=== PATIENT | female | born 1990 | race Caucasian/White ===

== ENCOUNTER 2017-05-27 06:33 | Inpatient (IN) | payer OTHER ==
[2017-05-27] MEDS ORDERED: NACL 0.9% 1000 ML 2,000 ML IV ONE (06:52)
--- NOTE | 2017-05-27 07:11 | XRay Report ---
FINAL REPORT EXAM: XR CHEST 1V AP HISTORY: Fever/Sepsis TECHNIQUE: AP portable view(s) of the chest obtained. PRIORS: None. FINDINGS: No mediastinal shift. Cardiac silhouette is not enlarged. No pneumothorax, effusion, or focal pulmonary opacity identified. No acute skeletal findings. IMPRESSION: No acute pulmonary finding identified.
[2017-05-27 07:14] LABS: Basophils % (Auto) 0.2 % (0.0-1.8); Hematocrit 27.4 % (30.3-42.9); Hemoglobin 8.9 gm/dl (10.1-14.3); Lymphocytes % (Auto) 5.6 % (13.4-35.0); Mean Corpuscular HGB Conc 33 % (30-34); Mean Corpuscular Hemoglobin 32 pg (28-32); Mean Corpuscular Volume 99 fl (79-97); Monocytes # (Auto) 1.3 K/mm3 (0.0-0.8); Monocytes % (Auto) 7.4 % (0.0-7.3); Platelet Count 208 K/mm3 (140-440); Red Blood Count 2.77 M/mm3 (3.65-5.03); Red Cell Distribution Width 15.8 % (13.2-15.2)
[2017-05-27 07:25] LABS: INR 1.13 (0.87-1.13)
[2017-05-27 07:29] LABS: Alanine Aminotransferase 11 units/L (7-56); Albumin 3.4 g/dL (3.9-5); BUN/Creatinine Ratio 23; Bilirubin,Direct 0.4 mg/dL (0-0.2); Blood Urea Nitrogen 14 mg/dL (7-17); Calcium 8.2 mg/dL (8.4-10.2); Hemolysis Index 0
[2017-05-27] MEDS ORDERED: K-DUR PO ONE (07:34)
--- NOTE | 2017-05-27 07:34 | Emergency Department Report ---
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 Medics tell me that she had passed out in the cooler. When they arrived on the scene they did the usual assessment. They noted that their life pack 15 monitor registered a carbon monoxide level of 59. The patient was however awake and aware. She did seem to be having respiratory difficulty and was transported to this facility on oxygen. The patient tells me that she has been feeling weak for several days. She didn' t have any shortness of breath per se. She doesn't think that she lost consciousness. She doesn't report any chills but thinks she may have had a fever. She essentially just feels weak in general denying chest pain and abdominal pain. She also tells me that she had a miscarriage 2 weeks ago. -: Gradual, days(s) Radiation: other (no complaint of pain ) Severity scale (0 -10): 0 Improves with: none Worsens with: none Associated Symptoms: denies other symptoms, weakness - Related Data Allergies Allergy/AdvReac Type Severity Reaction Status Date / Time No Known Allergies Allergy Unverified 05/27/17 07:14 ED Review of Systems ROS: Stated complaint: PASSED OUT Other details as noted in HPI Constitutional: weakness. denies: chills, fever Eyes: denies: eye pain, eye discharge, vision change ENT: denies: ear pain, throat pain Respiratory: denies: cough, shortness of breath, wheezing Cardiovascular: denies: chest pain, palpitations Endocrine: no symptoms reported Gastrointestinal: denies: abdominal pain, nausea, diarrhea Genitourinary: as per HPI, other. denies: urgency, dysuria, discharge Musculoskeletal: denies: back pain, joint swelling, arthralgia Skin: denies: rash, lesions Neurological: denies: headache, weakness, paresthesias Psychiatric: denies: anxiety, depression Hematological/Lymphatic: denies: easy bleeding, easy bruising ED Past Medical Hx - Past Medical History Previous Medical History?: No - Surgical History Past Surgical History?: No - Social History Smoking Status: Never Smoker Substance Use Type: None ED Physical Exam - General Limitations: No Limitations General appearance: alert, in no apparent distress, other (patient looked somewhat ill) - Head Head exam: Present: atraumatic, normocephalic - Eye Eye exam: Present: normal appearance, PERRL, EOMI. Absent: scleral icterus - ENT ENT exam: Present: mucous membranes moist - Neck Neck exam: Present: normal inspection. Absent: tenderness, meningismus - Respiratory Respiratory exam: Present: normal lung sounds bilaterally. Absent: respiratory distress - Cardiovascular Cardiovascular Exam: Present: regular rate, normal rhythm. Absent: systolic murmur, diastolic murmur, rubs, gallop - GI/Abdominal GI/Abdominal exam: Present: soft, normal bowel sounds. Absent: distended, tenderness, guarding, rebound, rigid, organomegaly, mass - Extremities Exam Extremities exam: Present: normal inspection. Absent: full ROM, tenderness, normal capillary refill, pedal edema, joint swelling, calf tenderness - Back Exam Back exam: Present: normal inspection. Absent: CVA tenderness (R), CVA tenderness (L) - Neurological Exam Neurological exam: Present: alert, oriented X3, CN II-XII intact. Absent: motor sensory deficit - Psychiatric Psychiatric exam: Present: normal affect, normal mood - Skin Skin exam: Present: warm, dry, intact, normal color. Absent: rash ED Course Vital Signs 05/27/17 05/27/17 05/27/17 06:57 07:00 07:30 Temperature 98.7 F Pulse Rate 99 H 82 78 Respiratory 16 16 15 Rate Blood Pressure 94/52 100/58 Blood Pressure 95/57 [Left] O2 Sat by Pulse 99 94 Oximetry 05/27/17 05/27/17 05/27/17 08:00 08:45 09:00 Temperature Pulse Rate 74 78 Respiratory 16 15 Rate Blood Pressure 94/47 94/47 93/53 Blood Pressure [Left] O2 Sat by Pulse 95 94 Oximetry 05/27/17 05/27/17 05/27/17 09:30 10:00 12:00 Temperature Pulse Rate 77 80 95 H Respiratory 13 18 15 Rate Blood Pressure 97/54 93/53 91/50 Blood Pressure [Left] O2 Sat by Pulse 93 90 Oximetry 05/27/17 12:23 Temperature 98 F Pulse Rate Respiratory Rate Blood Pressure Blood Pressure [Left] O2 Sat by Pulse Oximetry - Reevaluation(s) Reevaluation #1: The patient was presumed to be septic. Blood cultures were obtained. She was started on Zosyn and ultimately vancomycin was added. She was found to have a urinary tract infection. Due to her respiratory symptoms and the question of carbon monoxide exposure A carboxyhemoglobin level was obtained. It was normal. The patient appeared to have a discrepancy between her pulse oximetry reading at 93 and a blood gas showing a PO2 of 97. She was tachycardic but she did not appear to be vasoconstricted. She was given a bolus of fluid. She looked somewhat improved. She is found to have an elevated white blood cell count and anemia. CT angiogram was negative for pulmonary embolism and showed minimal basilar atelectasis. Ultrasounds studies showed no acute abnormalities. Patient is clinically stable and improved. Her complex and somewhat odd history was discussed with Dr. Moore. She is admitted to telemetry for further care and evaluation by the hospitalist service. 05/27/17 12:30 ED Medical Decision Making - Lab Data Result diagrams: 05/27/17 07:02 05/27/17 07:02 Laboratory Results - last 24 hr 05/27/17 05/27/17 05/27/17 06:58 07:02 07:02 WBC 17.3 H RBC 2.77 L Hgb 8.9 L Hct 27.4 L MCV 99 H MCH 32 MCHC 33 RDW 15.8 H Plt Count 208 Lymph % (Auto) 5.6 L [place] % (Auto) 7.4 H Eos % (Auto) 0.0 Baso % (Auto) 0.2 Lymph # 1.0 L [place] # 1.3 H Eos # 0.0 Baso # 0.0 Seg Neutrophils % 86.8 H Seg Neutrophils # 15.0 H PT 15.1 H INR 1.13 APTT 36.0 POC ABG pH 7.423 POC ABG pCO2 32.9 L POC ABG pO2 97 POC ABG HCO3 21.5 POC ABG Total CO2 23 POC ABG O2 Sat 98 POC ABG Base Excess -3 ABG Carboxyhemoglobin FiO2 21 Sodium Chloride Carbon Dioxide Anion Gap BUN Creatinine Estimated GFR BUN/Creatinine Ratio Glucose Calcium Total Bilirubin Direct Bilirubin Indirect Bilirubin AST ALT Alkaline Phosphatase Troponin T Total Protein Albumin Albumin/Globulin Ratio 05/27/17 05/27/17 07:02 Unknown WBC RBC Hgb Hct MCV MCH MCHC RDW Plt Count Lymph % (Auto) [place] % (Auto) Eos % (Auto) Baso % (Auto) Lymph # [place] # Eos # Baso # Seg Neutrophils % Seg Neutrophils # PT INR APTT POC ABG pH POC ABG pCO2 POC ABG pO2 POC ABG HCO3 POC ABG Total CO2 POC ABG O2 Sat POC ABG Base Excess ABG Carboxyhemoglobin 1.3 FiO2 Sodium 135 L Chloride 99.0 Carbon Dioxide 22 Anion Gap 17 BUN 14 Creatinine 0.6 L Estimated GFR > 60 BUN/Creatinine Ratio 23 Glucose 116 H Calcium 8.2 L Total Bilirubin 2.90 H Direct Bilirubin 0.4 H Indirect Bilirubin 2.5 AST 20 ALT 11 Alkaline Phosphatase 72 Troponin T < 0.010 Total Protein 6.2 L Albumin 3.4 L Albumin/Globulin Ratio 1.2 k 2.9 - EKG Data -: EKG Interpreted by Me EKG shows normal: sinus rhythm, axis, intervals, QRS complexes, ST-T waves Rate: normal - EKG Data Interpretation: no acute changes - Radiology Data Radiology results: report reviewed Critical Care Time: Yes Critical care time in (mins) excluding proc time.: 90 Critical care attestation.: If time is entered above; I have spent that time in minutes in the direct care of this critically ill patient, excluding procedure time. ED Disposition Clinical Impression: Hypokalemia, History of miscarriage Sepsis Qualifiers: Sepsis type: sepsis due to unspecified organism Qualified Code(s): A41.9 - Sepsis, unspecified organism UTI (urinary tract infection) Qualifiers: Urinary tract infection type: acute cystitis Hematuria presence: without hematuria Qualified Code(s): N30.00 - Acute cystitis without hematuria Disposition: DC/TX-65 PSY HOSP/PSY UNIT Is pt being admited?: Yes Does the pt Need Aspirin: No Condition: Stable Referrals: PRIMARY CARE, [Primary Care Provider] - 3-5 Days Time of Disposition: 12:34
[2017-05-27] MEDS: ZOSYN/NS 3.375GM/50ML 3.375 GM/50 ML BAG IV SCH ×4 (08:45→21:12)
[2017-05-27 09:29] LABS: Bacteria,Urine 1+ /HPF (Negative); Bilirubin,Urine NEG (Negative); Blood,Urine SM (Negative); Color,Urine Yellow (Yellow); Protein,Urine <15 mg/dL mg/dL (Negative); Urobilinogen,Urine < 2.0 mg/dL (<2.0)
[2017-05-27 09:30] LABS: WBC,Urine > 182.0 /HPF (0.0-6.0)
[2017-05-27 09:37] LABS: HCG Qualitative,Urine Positive (Negative)
--- NOTE | 2017-05-27 10:55 | Cat Scan Report ---
CTA CHEST INDICATION: Dizziness, hypoxia. COMPARISON: CXR from earlier today. FINDINGS: Chest CTA performed following intravenous administration of 100 cc of Omnipaque 350. Rotational MIP's also obtained. Unremarkable heart and great vessels without suspicious pulmonary arterial filling defect. No size significant adenopathy or effusions, though mild bilateral lower lobe atelectasis posteriorly noted. A 4 mm right lower lobe calcified granuloma, axial image 77 and couple other peripherally in the right lower lobe. Otherwise clear lungs. Patent airway. Small subcentimeter subcarinal and bilateral hilar calcifications incidentally noted. Small bilateral axillary lymph nodes, the largest 1.2 cm on the left, axial image 37, series 2. Normal thyroid. No significant abnormality in the imaged upper abdomen. Unremarkable bones. CONCLUSION: Mild bibasilar atelectasis in this patient with old healed granulomatous disease, as described. Thank you for the opportunity to participate in this patient's care.
[2017-05-27] MEDS ORDERED: VANCOMYCIN PHARMACY TO DOSE IV SCH (12:00)
[2017-05-27] MEDS ORDERED: VANCOMYCIN/0.45 NS 1 GM/250 ML 1 GM/250 ML BAG IV SCH (12:00)
--- NOTE | 2017-05-27 12:03 | Ultrasound Report ---
ULTRASOUND OB LESS THAN 14 WEEKS - TRANSABDOMINAL AND TRANSVAGINAL INDICATION: Possible or miscarriage. Anemia. Serum beta-hCG not available. COMPARISON: None similar. FINDINGS: Transabdominal and transvaginal pelvic sonography performed in this patient stating miscarriage approximately 2 weeks ago. An anteverted uterus measuring approximately 12.1 x 3.1 x 1.6 cm demonstrates endometrial heterogeneity and mild increased vascularity with bilaminar thickness of approximately 1.3 cm, endovaginal images 7-14. Minimal pelvic free fluid. Ovaries appear unremarkable, approximately 3.7 x 1.9 x 2.4 cm on the right and 3.9 x 2.2 x 1.6 cm on the left. CONCLUSION: 1. Nonspecific endometrial thickness/heterogeneity, not excluded for retained products of conception in the given setting without sonographic evidence of a viable intrauterine gestation at this time, as described. 2. Both ovaries identified, as above. Please also correlate clinically, with serial serum beta-hCG values and/or followup sonogram, as warranted. Thank you for the opportunity to participate in this patient's care.
[2017-05-27] MEDS ORDERED: TYLENOL PO ONE (16:03)
[2017-05-27] MEDS: MORPHINE IV PRN (16:17)
[2017-05-27] MEDS: D5NS 1,000 ML IV SCH (16:19)
[2017-05-27] MEDS ORDERED: MOTRIN PO ONE ×2 (18:20→18:46)
[2017-05-27] MEDS ORDERED: NACL 0.9% 1000 ML 1,000 ML ONE (20:39)
[2017-05-27] MEDS ORDERED: NACL 0.9% 1000 ML 1,000 ML IV ONE (20:45)
--- NOTE | 2017-05-27 23:23 | History and Physical Report ---
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 Apparently she had passed out in the cooler. When they arrived on the scene they did the usual assessment. They noted that their life pack 15 monitor registered a carbon monoxide level of 59. The patient was however awake and aware. She did seem to be having respiratory difficulty and was transported to this facility on oxygen. The patient tells me that she has been feeling weak for several days. She didn' t have any shortness of breath per se. She doesn't think that she lost consciousness. She doesn't report any chills but thinks she may have had a fever. She essentially just feels weak in general denying chest pain and abdominal pain. She also tells me that she had a miscarriage 2 weeks ago. - Past Medical History Previous Medical History?: No - Surgical History Past Surgical History?: No - Social History Smoking Status: Never Smoker Substance Use Type: None Review of Systems ROS: Stated complaint: PASSED OUT Other details as noted in HPI Constitutional: weakness. denies: chills, fever Eyes: denies: eye pain, eye discharge, vision change ENT: denies: ear pain, throat pain Respiratory: denies: cough, shortness of breath, wheezing Cardiovascular: denies: chest pain, palpitations Endocrine: no symptoms reported Gastrointestinal: denies: abdominal pain, nausea, diarrhea Genitourinary: as per HPI, other. denies: urgency, dysuria, discharge Musculoskeletal: denies: back pain, joint swelling, arthralgia Skin: denies: rash, lesions Neurological: denies: headache, weakness, paresthesias Psychiatric: denies: anxiety, depression Hematological/Lymphatic: denies: easy bleeding, easy bruising Medications and Allergies Allergies Allergy/AdvReac Type Severity Reaction Status Date / Time No Known Allergies Allergy Unverified 05/27/17 07:14 Home Medications Medication Instructions Recorded Confirmed Last Taken Type No Known Home Medications [No 05/27/17 05/27/17 Unknown History Reported Home Medications] Active Meds: Active Medications Vancomycin HCl (Vancomycin/0.45 Ns 1 Gm/250 Ml) 1 gm in 250 mls @ 167.007 mls/ hr IV ONCE JEAN CARLOS Last Admin: 05/27/17 15:54 Dose: 167.007 mls/hr Vancomycin HCl 750 mg/ Sodium (Chloride) 257.5 mls @ 166.667 mls/hr IV Q12H JEAN CARLOS Piperacillin Sod/Tazobactam Sod (Zosyn/Ns 3.375gm/50ml) 3.375 gm in 50 mls @ 100 mls/hr IV Q6H JEAN CARLOS Last Admin: 05/27/17 21:12 Dose: 100 mls/hr Dextrose/Sodium Chloride (D5ns) 1,000 mls @ 125 mls/hr IV DIRECT JEAN CARLOS Last Admin: 05/27/17 16:19 Dose: 125 mls/hr Morphine Sulfate (Morphine) 2 mg IV Q4H PRN PRN Reason: Pain, Moderate (4-6) Last Admin: 05/27/17 16:17 Dose: 2 mg Vancomycin HCl (Vancomycin Pharmacy To Dose) 1 each IV PKCONSULT JEAN CARLOS; Protocol Exam - Constitutional Vitals: Temp Pulse Resp BP Pulse Ox 98.8 F 115 H 15 98/52 89 05/27/17 23:21 05/27/17 21:30 05/27/17 21:30 05/27/17 21:30 05/27/17 21:30 Results - Labs CBC & Chem 7: 05/28/17 03:56 05/28/17 03:56 Labs: Laboratory Last Values WBC 17.3 K/mm3 (4.5-11.0) H 05/27/17 07:02 RBC 2.77 M/mm3 (3.65-5.03) L 05/27/17 07:02 Hgb 8.9 gm/dl (10.1-14.3) L 05/27/17 07:02 Hct 27.4 % (30.3-42.9) L 05/27/17 07:02 MCV 99 fl (79-97) H 05/27/17 07:02 MCH 32 pg (28-32) 05/27/17 07:02 MCHC 33 % (30-34) 05/27/17 07:02 RDW 15.8 % (13.2-15.2) H 05/27/17 07:02 Plt Count 208 K/mm3 (140-440) 05/27/17 07:02 Lymph % (Auto) 5.6 % (13.4-35.0) L 05/27/17 07:02 [place] % (Auto) 7.4 % (0.0-7.3) H 05/27/17 07:02 Eos % (Auto) 0.0 % (0.0-4.3) 05/27/17 07:02 Baso % (Auto) 0.2 % (0.0-1.8) 05/27/17 07:02 Lymph # 1.0 K/mm3 (1.2-5.4) L 05/27/17 07:02 [place] # 1.3 K/mm3 (0.0-0.8) H 05/27/17 07:02 Eos # 0.0 K/mm3 (0.0-0.4) 05/27/17 07:02 Baso # 0.0 K/mm3 (0.0-0.1) 05/27/17 07:02 Seg Neutrophils % 86.8 % (40.0-70.0) H 05/27/17 07:02 Seg Neutrophils # 15.0 K/mm3 (1.8-7.7) H 05/27/17 07:02 PT 15.1 Sec. (12.2-14.9) H 05/27/17 07:02 INR 1.13 (0.87-1.13) 05/27/17 07:02 APTT 36.0 Sec. (24.2-36.6) 05/27/17 07:02 POC ABG pH 7.423 (7.35-7.45) 05/27/17 06:58 POC ABG pCO2 32.9 (35-45) L 05/27/17 06:58 POC ABG pO2 97 (80-105) 05/27/17 06:58 POC ABG HCO3 21.5 05/27/17 06:58 POC ABG Total CO2 23 05/27/17 06:58 POC ABG O2 Sat 98 05/27/17 06:58 POC ABG Base Excess -3 05/27/17 06:58 ABG Carboxyhemoglobin 1.3 % (0.0-5.0) 05/27/17 Unknown FiO2 21 % 05/27/17 06:58 Sodium 135 mmol/L (137-145) L 05/27/17 07:02 Potassium 2.9 mmol/L (3.6-5.0) L* 05/27/17 07:02 Chloride 99.0 mmol/L (98-107) 05/27/17 07:02 Carbon Dioxide 22 mmol/L (22-30) 05/27/17 07:02 Anion Gap 17 mmol/L 05/27/17 07:02 BUN 14 mg/dL (7-17) 05/27/17 07:02 Creatinine 0.6 mg/dL (0.7-1.2) L 05/27/17 07:02 Estimated GFR > 60 ml/min 05/27/17 07:02 BUN/Creatinine Ratio 23 % 05/27/17 07:02 Glucose 116 mg/dL (65-100) H 05/27/17 07:02 Lactic Acid 0.80 mmol/L (0.7-2.0) 05/27/17 09:46 Calcium 8.2 mg/dL (8.4-10.2) L 05/27/17 07:02 Total Bilirubin 2.90 mg/dL (0.1-1.2) H 05/27/17 07:02 Direct Bilirubin 0.4 mg/dL (0-0.2) H 05/27/17 07:02 Indirect Bilirubin 2.5 mg/dL 05/27/17 07:02 AST 20 units/L (5-40) 05/27/17 07:02 ALT 11 units/L (7-56) 05/27/17 07:02 Alkaline Phosphatase 72 units/L (35-129) 05/27/17 07:02 Troponin T < 0.010 ng/mL (0.00-0.029) 05/27/17 07:02 NT-Pro-B Natriuret Pep 555.0 pg/mL (0-450) H 05/27/17 07:05 Total Protein 6.2 g/dL (6.3-8.2) L 05/27/17 07:02 Albumin 3.4 g/dL (3.9-5) L 05/27/17 07:02 Albumin/Globulin Ratio 1.2 % 05/27/17 07:02 HCG, Qual Positive (Negative) 05/27/17 07:05 Urine Color Yellow (Yellow) 05/27/17 08:50 Urine Turbidity Cloudy (Clear) 05/27/17 08:50 Urine pH 5.0 (5.0-7.0) 05/27/17 08:50 Ur Specific [place] 1.005 (1.003-1.030) 05/27/17 08:50 Urine Protein <15 mg/dl mg/dL (Negative) 05/27/17 08:50 Urine Glucose (UA) Neg mg/dL (Negative) 05/27/17 08:50 Urine Ketones 20 mg/dL (Negative) 05/27/17 08:50 Urine Blood Sm (Negative) 05/27/17 08:50 Urine Nitrite Neg (Negative) 05/27/17 08:50 Urine Bilirubin Neg (Negative) 05/27/17 08:50 Urine Urobilinogen < 2.0 mg/dL (<2.0) 05/27/17 08:50 Ur Leukocyte Esterase Lg (Negative) 05/27/17 08:50 Urine WBC (Auto) > 182.0 /HPF (0.0-6.0) H 05/27/17 08:50 Urine RBC (Auto) 3.0 /HPF (0.0-6.0) 05/27/17 08:50 U Epithel Cells (Auto) 5.0 /HPF (0-13.0) 05/27/17 08:50 Urine Bacteria (Auto) 1+ /HPF (Negative) 05/27/17 08:50 Urine HCG, Qual Positive (Negative) A 05/27/17 08:50 Short CBC 05/27/17 05/28/17 Range/Units 07:02 03:56 WBC 17.3 H 12.5 H (4.5-11.0) K/mm3 Hgb 8.9 L 7.3 L (10.1-14.3) gm/dl Hct 27.4 L 22.3 L (30.3-42.9) % Plt Count 208 192 (140-440) K/mm3 BMP 05/27/17 05/28/17 07:02 03:56 Sodium 135 L 138 Potassium 2.9 L* 3.0 L Chloride 99.0 108.6 H Carbon Dioxide 22 18 L BUN 14 5 L Creatinine 0.6 L 0.3 L Glucose 116 H 137 H Calcium 8.2 L 6.6 L D Cardiac Enzymes 05/27/17 Range/Units 07:02 Troponin T < 0.010 (0.00-0.029) ng/mL Liver Function 05/27/17 05/28/17 Range/Units 07:02 03:56 Total Bilirubin 2.90 H 2.60 H (0.1-1.2) mg/dL Direct Bilirubin 0.4 H (0-0.2) mg/dL AST 20 35 (5-40) units/L ALT 11 20 (7-56) units/L Alkaline Phosphatase 72 73 (35-129) units/L Albumin 3.4 L 2.5 L (3.9-5) g/dL Urine 05/27/17 Range/Units 08:50 Urine Color Yellow (Yellow) Urine pH 5.0 (5.0-7.0) Ur Specific [place] 1.005 (1.003-1.030) Urine Protein <15 mg/dl (Negative) mg/dL Urine Glucose (UA) Neg (Negative) mg/dL Assessment and Plan Advance Directives: Yes (Full code) VTE prophylaxis?: Chemical Plan of care discussed with patient/family: Yes - Patient Problems (1) Sepsis Current Visit: Yes Status: Acute Qualifiers: Sepsis type: sepsis due to unspecified organism Qualified Code(s): A41.9 - Sepsis, unspecified organism Plan to address problem: Cont IV Zosyn and Vancomycin ID Consult Check panvilteres (2) Hypokalemia Current Visit: Yes Status: Acute Plan to address problem: supplemented (3) DVT prophylaxis Current Visit: Yes Status: Acute Plan to address problem: on lovenox/Heparin
[2017-05-27] MEDS ORDERED: PERCOCET 5/325 PO PRN (23:24)
[2017-05-27] MEDS ORDERED: ZOFRAN IV PRN (23:24)
[2017-05-27] MEDS ORDERED: SODIUM CHLORIDE FLUSH SYRINGE 10 ML IV PRN (23:24)
[2017-05-27] MEDS ORDERED: AMBIEN PO PRN (23:24)
[2017-05-28] MEDS: VANCOMYCIN 750 MG in NACL 0.9% 250ML 250 ML IV SCH ×2 (00:48→14:55)
[2017-05-28] MEDS: DILAUDID IV PRN ×2 (01:00→18:47)
[2017-05-28] MEDS: PEPCID IV SCH ×3 (01:00→22:25)
[2017-05-28] MEDS ORDERED: NACL 0.9% 1000 ML 1,000 ML ONE (02:05)
[2017-05-28] MEDS ORDERED: NACL 0.9% 1000 ML 1,000 ML IV ONE (02:11)
[2017-05-28] MEDS: ZOSYN/NS 3.375GM/50ML 3.375 GM/50 ML BAG IV SCH ×4 (03:24→22:30)
[2017-05-28 04:07] LABS: Basophils % (Auto) 0.2 % (0.0-1.8); Eosinophils # (Auto) 0.1 K/mm3 (0.0-0.4); Eosinophils % (Auto) 0.4 % (0.0-4.3); Hematocrit 22.3 % (30.3-42.9); Hemoglobin 7.3 gm/dl (10.1-14.3); Lymphocytes # (Auto) 1.4 K/mm3 (1.2-5.4); Lymphocytes % (Auto) 11.4 % (13.4-35.0); Mean Corpuscular HGB Conc 33 % (30-34); Mean Corpuscular Hemoglobin 32 pg (28-32); Mean Corpuscular Volume 98 fl (79-97); Monocytes # (Auto) 1.2 K/mm3 (0.0-0.8); Monocytes % (Auto) 9.2 % (0.0-7.3); Platelet Count 192 K/mm3 (140-440); Red Blood Count 2.27 M/mm3 (3.65-5.03); Red Cell Distribution Width 16.5 % (13.2-15.2)
[2017-05-28 04:23] LABS: Alanine Aminotransferase 20 units/L (7-56); Albumin 2.5 g/dL (3.9-5); BUN/Creatinine Ratio 17; Blood Urea Nitrogen 5 mg/dL (7-17); Calcium 6.6 mg/dL (8.4-10.2); Hemolysis Index 9
[2017-05-28] MEDS: D5NS 1,000 ML IV SCH ×2 (05:08→18:11)
[2017-05-28] MEDS ORDERED: K-DUR PO ONE (06:40)
[2017-05-28] MEDS ORDERED: NACL 0.9% 1000 ML 1,000 ML IV SCH (08:00)
[2017-05-28] MEDS: KCL 10MEQ/100ML 10 MEQ/100 ML BAG IV SCH ×4 (08:55→13:50)
[2017-05-28 09:05] LABS: BUN/Creatinine Ratio 17; Blood Urea Nitrogen 5 mg/dL (7-17); Calcium 7.2 mg/dL (8.4-10.2); Hemolysis Index 8
[2017-05-28] MEDS: SODIUM CHLORIDE FLUSH SYRINGE 10 ML IV SCH ×2 (09:18→22:41)
--- NOTE | 2017-05-28 09:21 | Progress Note ---
<CHHAYA EVANS - Last Filed: 05/28/17 13:27> Assessment and Plan Assessment and plan: Sepsis Cont IV Zosyn and Vancomycin Follow blood cultures, ID Consult Hypotension Likely from above, continue hydration with NS Hypokalemia supplemented Anemia Will continue to monitor, no sign of active bleed Transfuse if Hgb <7 Endometrial thickening on US [employer] consulted UTI Culture showed gram neg rods, pt on Zosyn DVT prophylaxis SCDs History Interval history: Patient seen and examined. She complains of a headache today. She denies SOB, CP , NV, abdominal pain or bleeding. Labs and nursing notes reviewed. Hospitalist Physical - Constitutional Vitals: Temp Pulse Resp BP Pulse Ox 97.8 F 87 16 90/55 95 05/28/17 08:11 05/28/17 08:11 05/28/17 08:11 05/28/17 08:11 05/28/17 08:11 General appearance: Present: no acute distress, well-nourished - EENT Eyes: Present: PERRL, EOM intact ENT: hearing intact, clear oral mucosa, dentition normal - Neck Neck: Present: supple, normal ROM - Respiratory Respiratory effort: normal Respiratory: bilateral: CTA - Cardiovascular Rhythm: regular Heart Sounds: Present: S1 & S2 - Extremities Extremities: no ischemia, No edema - Abdominal General gastrointestinal: soft, non-tender, non-distended - Integumentary Integumentary: Present: clear, warm, dry - Psychiatric Psychiatric: appropriate mood/affect, intact judgment & insight, cooperative - Neurologic Neurologic: CNII-XII intact, moves all extremities - Allied Health Allied health notes reviewed: nursing Results - Labs CBC & Chem 7: 05/28/17 03:56 05/28/17 08:03 Labs: Laboratory Last Values WBC 12.5 K/mm3 (4.5-11.0) H 05/28/17 03:56 RBC 2.27 M/mm3 (3.65-5.03) L 05/28/17 03:56 Hgb 7.3 gm/dl (10.1-14.3) L 05/28/17 03:56 Hct 22.3 % (30.3-42.9) L 05/28/17 03:56 MCV 98 fl (79-97) H 05/28/17 03:56 MCH 32 pg (28-32) 05/28/17 03:56 MCHC 33 % (30-34) 05/28/17 03:56 RDW 16.5 % (13.2-15.2) H 05/28/17 03:56 Plt Count 192 K/mm3 (140-440) 05/28/17 03:56 Lymph % (Auto) 11.4 % (13.4-35.0) L 05/28/17 03:56 Todd % (Auto) 9.2 % (0.0-7.3) H 05/28/17 03:56 Eos % (Auto) 0.4 % (0.0-4.3) 05/28/17 03:56 Baso % (Auto) 0.2 % (0.0-1.8) 05/28/17 03:56 Lymph # 1.4 K/mm3 (1.2-5.4) 05/28/17 03:56 Todd # 1.2 K/mm3 (0.0-0.8) H 05/28/17 03:56 Eos # 0.1 K/mm3 (0.0-0.4) 05/28/17 03:56 Baso # 0.0 K/mm3 (0.0-0.1) 05/28/17 03:56 Seg Neutrophils % 78.8 % (40.0-70.0) H 05/28/17 03:56 Seg Neutrophils # 9.9 K/mm3 (1.8-7.7) H 05/28/17 03:56 PT 15.1 Sec. (12.2-14.9) H 05/27/17 07:02 INR 1.13 (0.87-1.13) 05/27/17 07:02 APTT 36.0 Sec. (24.2-36.6) 05/27/17 07:02 POC ABG pH 7.423 (7.35-7.45) 05/27/17 06:58 POC ABG pCO2 32.9 (35-45) L 05/27/17 06:58 POC ABG pO2 97 (80-105) 05/27/17 06:58 POC ABG HCO3 21.5 05/27/17 06:58 POC ABG Total CO2 23 05/27/17 06:58 POC ABG O2 Sat 98 05/27/17 06:58 POC ABG Base Excess -3 05/27/17 06:58 ABG Carboxyhemoglobin 1.3 % (0.0-5.0) 05/27/17 Unknown FiO2 21 % 05/27/17 06:58 Sodium 140 mmol/L (137-145) 05/28/17 08:03 Potassium 3.4 mmol/L (3.6-5.0) L 05/28/17 08:03 Chloride 110.6 mmol/L (98-107) H 05/28/17 08:03 Carbon Dioxide 19 mmol/L (22-30) L 05/28/17 08:03 Anion Gap 14 mmol/L 05/28/17 08:03 BUN 5 mg/dL (7-17) L 05/28/17 08:03 Creatinine 0.3 mg/dL (0.7-1.2) L 05/28/17 08:03 Estimated GFR > 60 ml/min 05/28/17 08:03 BUN/Creatinine Ratio 17 % 05/28/17 08:03 Glucose 108 mg/dL (65-100) H 05/28/17 08:03 Hemoglobin A1c 5.1 % (4-6) 05/27/17 23:54 Lactic Acid 0.80 mmol/L (0.7-2.0) 05/27/17 09:46 Calcium 7.2 mg/dL (8.4-10.2) L 05/28/17 08:03 Total Bilirubin 2.60 mg/dL (0.1-1.2) H 05/28/17 03:56 Direct Bilirubin 0.4 mg/dL (0-0.2) H 05/27/17 07:02 Indirect Bilirubin 2.5 mg/dL 05/27/17 07:02 AST 35 units/L (5-40) 05/28/17 03:56 ALT 20 units/L (7-56) 05/28/17 03:56 Alkaline Phosphatase 73 units/L (35-129) 05/28/17 03:56 Troponin T < 0.010 ng/mL (0.00-0.029) 05/27/17 07:02 NT-Pro-B Natriuret Pep 555.0 pg/mL (0-450) H 05/27/17 07:05 Total Protein 4.7 g/dL (6.3-8.2) L D 05/28/17 03:56 Albumin 2.5 g/dL (3.9-5) L 05/28/17 03:56 Albumin/Globulin Ratio 1.1 % 05/28/17 03:56 HCG, Qual Positive (Negative) 05/27/17 07:05 HCG, Quant 5.08 mIU/mL (0-4) H 05/28/17 00:00 Urine Color Yellow (Yellow) 05/27/17 08:50 Urine Turbidity Cloudy (Clear) 05/27/17 08:50 Urine pH 5.0 (5.0-7.0) 05/27/17 08:50 Ur Specific [place] 1.005 (1.003-1.030) 05/27/17 08:50 Urine Protein <15 mg/dl mg/dL (Negative) 05/27/17 08:50 Urine Glucose (UA) Neg mg/dL (Negative) 05/27/17 08:50 Urine Ketones 20 mg/dL (Negative) 05/27/17 08:50 Urine Blood Sm (Negative) 05/27/17 08:50 Urine Nitrite Neg (Negative) 05/27/17 08:50 Urine Bilirubin Neg (Negative) 05/27/17 08:50 Urine Urobilinogen < 2.0 mg/dL (<2.0) 05/27/17 08:50 Ur Leukocyte Esterase Lg (Negative) 05/27/17 08:50 Urine WBC (Auto) > 182.0 /HPF (0.0-6.0) H 05/27/17 08:50 Urine RBC (Auto) 3.0 /HPF (0.0-6.0) 05/27/17 08:50 U Epithel Cells (Auto) 5.0 /HPF (0-13.0) 05/27/17 08:50 Urine Bacteria (Auto) 1+ /HPF (Negative) 05/27/17 08:50 Urine HCG, Qual Positive (Negative) A 05/27/17 08:50 <CHACE BLACKBURN O - Last Filed: 05/29/17 18:15> Assessment and Plan Assessment and plan: I saw and evaluated the patient. I agree with the findings and the plan of care as documented in the Nurse Practitioner's~note, with the following corrections and additions. Patient with sepsis. Gynecology and ID Physician to see. Hospitalist Physical - Constitutional Vitals: Temp Pulse Resp BP Pulse Ox 99.6 F 62 20 112/69 95 05/29/17 15:27 05/29/17 15:27 05/29/17 15:27 05/29/17 15:27 05/29/17 15:27 Results - Labs CBC & Chem 7: 05/29/17 11:22 05/29/17 11:22 Labs: Laboratory Last Values WBC 8.0 K/mm3 (4.5-11.0) 05/29/17 11:22 RBC 2.31 M/mm3 (3.65-5.03) L 05/29/17 11:22 Hgb 7.6 gm/dl (10.1-14.3) L 05/29/17 11:22 Hct 22.2 % (30.3-42.9) L 05/29/17 11:22 MCV 96 fl (79-97) 05/29/17 11:22 MCH 33 pg (28-32) H 05/29/17 11:22 MCHC 34 % (30-34) 05/29/17 11:22 RDW 16.1 % (13.2-15.2) H 05/29/17 11:22 Plt Count 237 K/mm3 (140-440) 05/29/17 11:22 Lymph % (Auto) 20.2 % (13.4-35.0) 05/29/17 11:22 Todd % (Auto) 11.1 % (0.0-7.3) H 05/29/17 11:22 Eos % (Auto) 0.2 % (0.0-4.3) 05/29/17 11:22 Baso % (Auto) 0.2 % (0.0-1.8) 05/29/17 11:22 Lymph # 1.6 K/mm3 (1.2-5.4) 05/29/17 11:22 Todd # 0.9 K/mm3 (0.0-0.8) H 05/29/17 11:22 Eos # 0.0 K/mm3 (0.0-0.4) 05/29/17 11:22 Baso # 0.0 K/mm3 (0.0-0.1) 05/29/17 11:22 Seg Neutrophils % 68.3 % (40.0-70.0) 05/29/17 11:22 Seg Neutrophils # 5.5 K/mm3 (1.8-7.7) 05/29/17 11:22 PT 15.1 Sec. (12.2-14.9) H 05/27/17 07:02 INR 1.13 (0.87-1.13) 05/27/17 07:02 APTT 36.0 Sec. (24.2-36.6) 05/27/17 07:02 POC ABG pH 7.423 (7.35-7.45) 05/27/17 06:58 POC ABG pCO2 32.9 (35-45) L 05/27/17 06:58 POC ABG pO2 97 (80-105) 05/27/17 06:58 POC ABG HCO3 21.5 05/27/17 06:58 POC ABG Total CO2 23 05/27/17 06:58 POC ABG O2 Sat 98 05/27/17 06:58 POC ABG Base Excess -3 05/27/17 06:58 ABG Carboxyhemoglobin 1.3 % (0.0-5.0) 05/27/17 Unknown FiO2 21 % 05/27/17 06:58 Sodium 140 mmol/L (137-145) 05/29/17 11:22 Potassium 3.1 mmol/L (3.6-5.0) L 05/29/17 11:22 Chloride 107.7 mmol/L (98-107) H 05/29/17 11:22 Carbon Dioxide 21 mmol/L (22-30) L 05/29/17 11:22 Anion Gap 14 mmol/L 05/29/17 11:22 BUN 3 mg/dL (7-17) L 05/29/17 11:22 Creatinine 0.5 mg/dL (0.7-1.2) L D 05/29/17 11:22 Estimated GFR > 60 ml/min 05/29/17 11:22 BUN/Creatinine Ratio 6 % 05/29/17 11:22 Glucose 108 mg/dL (65-100) H 05/29/17 11:22 Hemoglobin A1c 5.1 % (4-6) 05/27/17 23:54 Lactic Acid 0.80 mmol/L (0.7-2.0) 05/27/17 09:46 Calcium 7.8 mg/dL (8.4-10.2) L 05/29/17 11:22 Total Bilirubin 2.60 mg/dL (0.1-1.2) H 05/28/17 03:56 Direct Bilirubin 0.4 mg/dL (0-0.2) H 05/27/17 07:02 Indirect Bilirubin 2.5 mg/dL 05/27/17 07:02 AST 35 units/L (5-40) 05/28/17 03:56 ALT 20 units/L (7-56) 05/28/17 03:56 Alkaline Phosphatase 73 units/L (35-129) 05/28/17 03:56 Troponin T < 0.010 ng/mL (0.00-0.029) 05/27/17 07:02 NT-Pro-B Natriuret Pep 555.0 pg/mL (0-450) H 05/27/17 07:05 Total Protein 4.7 g/dL (6.3-8.2) L D 05/28/17 03:56 Albumin 2.5 g/dL (3.9-5) L 05/28/17 03:56 Albumin/Globulin Ratio 1.1 % 05/28/17 03:56 HCG, Qual Positive (Negative) 05/27/17 07:05 HCG, Quant 5.08 mIU/mL (0-4) H 05/28/17 00:00 Urine Color Yellow (Yellow) 05/27/17 08:50 Urine Turbidity Cloudy (Clear) 05/27/17 08:50 Urine pH 5.0 (5.0-7.0) 05/27/17 08:50 Ur Specific [place] 1.005 (1.003-1.030) 05/27/17 08:50 Urine Protein <15 mg/dl mg/dL (Negative) 05/27/17 08:50 Urine Glucose (UA) Neg mg/dL (Negative) 05/27/17 08:50 Urine Ketones 20 mg/dL (Negative) 05/27/17 08:50 Urine Blood Sm (Negative) 05/27/17 08:50 Urine Nitrite Neg (Negative) 05/27/17 08:50 Urine Bilirubin Neg (Negative) 05/27/17 08:50 Urine Urobilinogen < 2.0 mg/dL (<2.0) 05/27/17 08:50 Ur Leukocyte Esterase Lg (Negative) 05/27/17 08:50 Urine WBC (Auto) > 182.0 /HPF (0.0-6.0) H 05/27/17 08:50 Urine RBC (Auto) 3.0 /HPF (0.0-6.0) 05/27/17 08:50 U Epithel Cells (Auto) 5.0 /HPF (0-13.0) 05/27/17 08:50 Urine Bacteria (Auto) 1+ /HPF (Negative) 05/27/17 08:50 Urine HCG, Qual Positive (Negative) A 05/27/17 08:50 HIV 1&2 Antibody Rapid Non react (Non React) 05/28/17 16:55 HIV P24 Antigen Non react (Non React) 05/28/17 16:55
[2017-05-28 14:19] LABS: Hematocrit 22.9 % (30.3-42.9); Hemoglobin 7.5 gm/dl (10.1-14.3)
[2017-05-28] MEDS: MORPHINE IV PRN (14:44)
--- NOTE | 2017-05-28 15:14 | Consultation ---
History of Present Illness - Reason for Consult Consult date: 05/28/17 sepsis Requesting physician: KEVIN MARTINEZ - History of Present Illness 7 years old female without any medical history; admitted on 05/27/2017 due to 5 day history of generalized malaise, body aches, diffuse headache, nausea, vomiting and vagina bleeding. Patient had been as spontaneous loss 3 weeks ago. 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 Patient did not seek further medical attention at the time. However she then had a vaginal ultrasound that was found to be normal. Patient became sicker with high fever and severe headaches. Denies diarrhea, melena or hematemesis. She is with 3 kids. Denies alcohol or drug abuse. In the ED initial temperature was 98.7, however temperature went to 102.9, heart rate 99, respirations 16, O2 sat 99, blood pressure 95/57. Initial white count 17.3. Hemoglobin 8.9. Platelets 208. Sodium 135. Urinalysis showed 182 white blood cells and large leukocyte esterase. Creatinine 0.6. EEG was positive. CT A of the chest showed bibasilar atelectases and old healed granulomatous disease. Chest x-ray was negative. Transvaginal ultrasound showed endometrial thickening and possible retained products of conception. Microbiology: Blood cultures: 05/27 ngtd Urine cultures: 05/27 GNR Current Antimicrobials: Zosyn Vancomycin Previous Antimicrobials: Past History Past Surgical History: No surgical history Social history: no significant social history, , lives with family. denies: smoking, alcohol abuse, IV drug use Family history: no significant family history Medications and Allergies Allergies Allergy/AdvReac Type Severity Reaction Status Date / Time No Known Allergies Allergy Unverified 05/27/17 07:14 Home Medications Medication Instructions Recorded Confirmed Last Taken Type No Known Home Medications [No 05/27/17 05/27/17 Unknown History Reported Home Medications] Active Meds: Active Medications Acetaminophen (Tylenol) 650 mg PO Q4H PRN PRN Reason: Pain MILD(1-3)/Fever >100.5/BENDER Famotidine (Pepcid) 20 mg IV BID JEAN CARLOS Last Admin: 05/28/17 09:05 Dose: 20 mg Hydromorphone HCl (Dilaudid) 0.5 mg IV Q3H PRN PRN Reason: Pain , Severe (7-10) Last Admin: 05/28/17 01:00 Dose: 0.5 mg Vancomycin HCl (Vancomycin/0.45 Ns 1 Gm/250 Ml) 1 gm in 250 mls @ 167.007 mls/ hr IV ONCE JEAN CARLOS Last Admin: 05/27/17 15:54 Dose: 167.007 mls/hr Vancomycin HCl 750 mg/ Sodium (Chloride) 257.5 mls @ 166.667 mls/hr IV Q12H JEAN CARLOS Last Admin: 05/28/17 14:55 Dose: 166.667 mls/hr Piperacillin Sod/Tazobactam Sod (Zosyn/Ns 3.375gm/50ml) 3.375 gm in 50 mls @ 100 mls/hr IV Q6H JEAN CARLOS Last Admin: 05/28/17 08:54 Dose: 100 mls/hr Sodium Chloride (Nacl 0.9% 1000 Ml) 1,000 mls @ 150 mls/hr IV DIRECT JEAN CARLOS Last Admin: 05/28/17 08:55 Dose: 150 mls/hr Morphine Sulfate (Morphine) 2 mg IV Q4H PRN PRN Reason: Pain, Moderate (4-6) Last Admin: 05/28/17 14:44 Dose: 2 mg Ondansetron HCl (Zofran) 4 mg IV Q8H PRN PRN Reason: Nausea And Vomiting Last Admin: 05/28/17 14:44 Dose: 4 mg Oxycodone/Acetaminophen (Percocet 5/325) 1 tab PO Q6H PRN PRN Reason: Pain, Moderate (4-6) Sodium Chloride (Sodium Chloride Flush Syringe 10 Ml) 10 ml IV BID JEAN CARLOS Last Admin: 05/28/17 09:18 Dose: 10 ml Sodium Chloride (Sodium Chloride Flush Syringe 10 Ml) 10 ml IV PRN PRN PRN Reason: LINE FLUSH Last Admin: 05/28/17 14:56 Dose: 10 ml Vancomycin HCl (Vancomycin Pharmacy To Dose) 1 each IV PKCONSULT JEAN CARLOS; Protocol Zolpidem Tartrate (Ambien) 5 mg PO QHS PRN PRN Reason: Insomnia Review of Systems All systems: negative (as per HPI rest of 10 point review systems negative) Physical Examination - Physical Exam Narrative exam: General appearance: Alert in mild respiratory distress, debilitated pale Eyes: anicteric sclerae, moist conjunctivae; no lid-lag; PERRLA HENT: Atraumatic; oropharynx clear Neck: Trachea midline; supple, no thyromegaly or lymphadenopathy Lungs: CTA CV: Tachycardic Abdomen: Soft, mild tenderness in the suprapubic area no rebound Extremities: No peripheral edema or extremity lymphadenopathy Skin: Normal temperature, turgor and texture; no rash, ulcers or subcutaneous nodules Psych: Anxious. Neuro: alert and oriented x 3. Moving all extermities Lines: No CVL / PICC - Constitutional Vitals: Vital Signs Temp Pulse Resp BP Pulse Ox 98.8 F 105 H 20 107/68 90 05/28/17 11:26 05/28/17 11:26 05/28/17 14:44 05/28/17 11:26 05/28/17 11:26 Temperature -Last 24 Hours Temperature 98.8 F Temperature 97.8 F Temperature 98.8 F Temperature 99.9 F Temperature 103 F Temperature 102.6 F Temperature 102.9 F Results - Labs CBC & Chem 7: 05/28/17 13:32 05/28/17 08:03 Labs: Abnormal lab results 05/28/17 05/28/17 05/28/17 Range/Units 00:00 03:56 03:56 WBC 12.5 H (4.5-11.0) K/mm3 RBC 2.27 L (3.65-5.03) M/mm3 Hgb 7.3 L (10.1-14.3) gm/dl Hct 22.3 L (30.3-42.9) % MCV 98 H (79-97) fl RDW 16.5 H (13.2-15.2) % Lymph % (Auto) 11.4 L (13.4-35.0) % [place] % (Auto) 9.2 H (0.0-7.3) % [place] # 1.2 H (0.0-0.8) K/mm3 Seg Neutrophils % 78.8 H (40.0-70.0) % Seg Neutrophils # 9.9 H (1.8-7.7) K/mm3 Potassium 3.0 L (3.6-5.0) mmol/L Chloride 108.6 H (98-107) mmol/L Carbon Dioxide 18 L (22-30) mmol/L BUN 5 L (7-17) mg/dL Creatinine 0.3 L (0.7-1.2) mg/dL Glucose 137 H (65-100) mg/dL Calcium 6.6 L D (8.4-10.2) mg/dL Total Bilirubin 2.60 H (0.1-1.2) mg/dL Total Protein 4.7 L D (6.3-8.2) g/dL Albumin 2.5 L (3.9-5) g/dL HCG, Quant 5.08 H (0-4) mIU/mL 05/28/17 05/28/17 Range/Units 08:03 13:32 WBC (4.5-11.0) K/mm3 RBC (3.65-5.03) M/mm3 Hgb 7.5 L (10.1-14.3) gm/dl Hct 22.9 L (30.3-42.9) % MCV (79-97) fl RDW (13.2-15.2) % Lymph % (Auto) (13.4-35.0) % [place] % (Auto) (0.0-7.3) % [place] # (0.0-0.8) K/mm3 Seg Neutrophils % (40.0-70.0) % Seg Neutrophils # (1.8-7.7) K/mm3 Potassium 3.4 L (3.6-5.0) mmol/L Chloride 110.6 H (98-107) mmol/L Carbon Dioxide 19 L (22-30) mmol/L BUN 5 L (7-17) mg/dL Creatinine 0.3 L (0.7-1.2) mg/dL Glucose 108 H (65-100) mg/dL Calcium 7.2 L (8.4-10.2) mg/dL Total Bilirubin (0.1-1.2) mg/dL Total Protein (6.3-8.2) g/dL Albumin (3.9-5) g/dL HCG, Quant (0-4) mIU/mL Assessment and Plan Assessment: 1) Severe Sepsis: Present on admission, manifested by fever, tachycardia, hypotension, leukocytosis. Etiology most likely acute endometritis +/- UTI 2) Acute endometritis: from probably necrotic/infected retained products of conception. Patient with fever, vaginal bleeding and positive hCG. -Transvaginal ultrasound showed endometrial thickening and possible retained products of conception. 3) Spontaneous loss: 3 weeks ago 4) UTI: Urine culture growing gram-negative throats 5) Anemia Plan: -Prompt evacuation of the uterus / [employer] consult -Continue Zosyn -Add IV doxycycline -Check HIV, GC and chlamydia -Stop Vancomycin -Follow up blood cultures and urine culture Thank you for your consultation, will follow up with you. Flores Gamboa MD Infectious Diseases Specialist [facility] ([facility] M [phone] O [phone]
--- NOTE | 2017-05-28 16:23 | Consultation ---
History of Present Illness Consult date: 05/28/17 Reason for consult: pelvic infection History of present illness: Asked to see this 27-year-old who was admitted on 05/27/17 with ~ 5 day history of generalized malaise, body aches, diffuse headache, nausea, vomiting she also has vaginal spotting. She is status post spontaneous AB of a ~ 13 week about ~ 3 weeks ago. [place] recall the name or Phone number at this time, she is in the process of trying to get that information to me. She has an oral history of being "put to sleep" before the procedure was performed. She presented to the emergency room as she felt increasingly unwell and appears to have passed out at work. On admission, she has been febrile and hypotensive. Initial white count 17.3. Hemoglobin 8.9. Platelets 208. Sodium 135. Urinalysis showed 182 white blood cells and large leukocyte esterase. Creatinine 0.6. EEG was positive. CTA of the chest showed bibasilar atelectases and old healed granulomatous disease. Chest x-ray was negative. I am called because her Transvaginal ultrasound showed endometrial thickening and possible retained products of conception. She also had positive serum test. Urine culture result is positive for over 100,000 gram-negative rods She has been seen by infectious disease and is currently on doxycycline and Zosyn. 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 denies: smoking, alcohol abuse, prescription drug abuse, IV drug use - Obstetrical History : 4 Para: 3 Medications and Allergies Allergies Allergy/AdvReac Type Severity Reaction Status Date / Time No Known Allergies Allergy Unverified 05/27/17 07:14 Home Medications Medication Instructions Recorded Confirmed Last Taken Type No Known Home Medications [No 05/27/17 05/27/17 Unknown History Reported Home Medications] Active Meds: Active Medications Acetaminophen (Tylenol) 650 mg PO Q4H PRN PRN Reason: Pain MILD(1-3)/Fever >100.5/BENDER Famotidine (Pepcid) 20 mg IV BID JEAN CARLOS Last Admin: 05/28/17 09:05 Dose: 20 mg Hydromorphone HCl (Dilaudid) 0.5 mg IV Q3H PRN PRN Reason: Pain , Severe (7-10) Last Admin: 05/28/17 01:00 Dose: 0.5 mg Vancomycin HCl (Vancomycin/0.45 Ns 1 Gm/250 Ml) 1 gm in 250 mls @ 167.007 mls/ hr IV ONCE [facility] Last Admin: 05/27/17 15:54 Dose: 167.007 mls/hr Piperacillin Sod/Tazobactam Sod (Zosyn/Ns 3.375gm/50ml) 3.375 gm in 50 mls @ 100 mls/hr IV Q6H [facility] Last Admin: 05/28/17 08:54 Dose: 100 mls/hr Doxycycline Hyclate 100 mg/ (Sodium Chloride) 250 mls @ 250 mls/hr IV Q12H [facility] ; Protocol Dextrose/Sodium Chloride (D5ns) 1,000 mls @ 125 mls/hr IV DIRECT [facility] Misoprostol (Cytotec) 400 mcg PO Q4H [facility] Stop: 05/29/17 01:01 Morphine Sulfate (Morphine) 2 mg IV Q4H PRN PRN Reason: Pain, Moderate (4-6) Last Admin: 05/28/17 14:44 Dose: 2 mg Ondansetron HCl (Zofran) 4 mg IV Q8H PRN PRN Reason: Nausea And Vomiting Last Admin: 05/28/17 14:44 Dose: 4 mg Oxycodone/Acetaminophen (Percocet 5/325) 1 tab PO Q6H PRN PRN Reason: Pain, Moderate (4-6) Sodium Chloride (Sodium Chloride Flush Syringe 10 Ml) 10 ml IV BID [facility] Last Admin: 05/28/17 09:18 Dose: 10 ml Sodium Chloride (Sodium Chloride Flush Syringe 10 Ml) 10 ml IV PRN PRN PRN Reason: LINE FLUSH Last Admin: 05/28/17 14:56 Dose: 10 ml Vancomycin HCl (Vancomycin Pharmacy To Dose) 1 each IV PKCONSULT [facility]; Protocol Zolpidem Tartrate (Ambien) 5 mg PO QHS PRN PRN Reason: Insomnia Review of Systems Constitutional: fever, weakness Cardiovascular: no chest pain Respiratory: no cough, no cough with sputum, no shortness of breath Gastrointestinal: vomiting, no abdominal pain, no diarrhea Genitourinary: vaginal bleeding (mild spotting), no vaginal discharge, no pelvic pain, no contractions - Vital Signs Vital signs: Vital Signs Temp Pulse Resp BP Pulse Ox 98.7 F 99 H 16 95/57 99 05/27/17 06:57 05/27/17 06:57 05/27/17 06:57 05/27/17 06:57 05/27/17 06:57 Temp Pulse Resp BP Pulse Ox 98.8 F 105 H 20 107/68 90 05/28/17 11:26 05/28/17 11:26 05/28/17 14:44 05/28/17 11:26 05/28/17 11:26 - Physical Exam Abdomen: Positive: normal appearance, soft, other (CVA tenderness). Negative: distention, tenderness, guarding Genitourinary (Female): Positive: normal external genitalia Vulva: both: normal Cervix: Positive: other (No cervical motion tenderness). Negative: discharge Uterus: Positive: normal size. Negative: tender Adnexa: both: normal Extremities: Positive: normal Results Result Diagrams: 05/28/17 13:32 05/28/17 08:03 Abnormal lab results 05/28/17 05/28/17 05/28/17 Range/Units 00:00 03:56 03:56 WBC 12.5 H (4.5-11.0) K/mm3 RBC 2.27 L (3.65-5.03) M/mm3 Hgb 7.3 L (10.1-14.3) gm/dl Hct 22.3 L (30.3-42.9) % MCV 98 H (79-97) fl RDW 16.5 H (13.2-15.2) % Lymph % (Auto) 11.4 L (13.4-35.0) % [place] % (Auto) 9.2 H (0.0-7.3) % [place] # 1.2 H (0.0-0.8) K/mm3 Seg Neutrophils % 78.8 H (40.0-70.0) % Seg Neutrophils # 9.9 H (1.8-7.7) K/mm3 Potassium 3.0 L (3.6-5.0) mmol/L Chloride 108.6 H (98-107) mmol/L Carbon Dioxide 18 L (22-30) mmol/L BUN 5 L (7-17) mg/dL Creatinine 0.3 L (0.7-1.2) mg/dL Glucose 137 H (65-100) mg/dL Calcium 6.6 L D (8.4-10.2) mg/dL Total Bilirubin 2.60 H (0.1-1.2) mg/dL Total Protein 4.7 L D (6.3-8.2) g/dL Albumin 2.5 L (3.9-5) g/dL HCG, Quant 5.08 H (0-4) mIU/mL 05/28/17 05/28/17 Range/Units 08:03 13:32 WBC (4.5-11.0) K/mm3 RBC (3.65-5.03) M/mm3 Hgb 7.5 L (10.1-14.3) gm/dl Hct 22.9 L (30.3-42.9) % MCV (79-97) fl RDW (13.2-15.2) % Lymph % (Auto) (13.4-35.0) % [place] % (Auto) (0.0-7.3) % [place] # (0.0-0.8) K/mm3 Seg Neutrophils % (40.0-70.0) % Seg Neutrophils # (1.8-7.7) K/mm3 Potassium 3.4 L (3.6-5.0) mmol/L Chloride 110.6 H (98-107) mmol/L Carbon Dioxide 19 L (22-30) mmol/L BUN 5 L (7-17) mg/dL Creatinine 0.3 L (0.7-1.2) mg/dL Glucose 108 H (65-100) mg/dL Calcium 7.2 L (8.4-10.2) mg/dL Total Bilirubin (0.1-1.2) mg/dL Total Protein (6.3-8.2) g/dL Albumin (3.9-5) g/dL HCG, Quant (0-4) mIU/mL All other labs normal. Assessment and Plan A: 27-year-old with sepsis -?Endometritis -UTI P: -On pelvic exam, patient has no lower abd pain, she has no bimanual tenderness or cervical motion tenderness; she has no foul-smelling discharge and has CVA tenderness. Although endometritis is a possibility, she more likely has a UTI due to the clinical findings above. Do not feel D&C is warranted at this time. We'll recommend we continue IV antibiotics for now including doxycycline and Zosyn. Await Culture speciation and sensitivity. If no improvement or worsening symptoms in ~ 24-48 hours we'll reassess. -Prescribed Cytotec at this time -Discussed above thoughts with ID physician and Hospitalist. - Patient Problems (1) Sepsis Current Visit: Yes Status: Acute Qualifiers: Sepsis type: sepsis due to unspecified organism Qualified Code(s): A41.9 - Sepsis, unspecified organism (2) UTI (urinary tract infection) Current Visit: Yes Status: Acute Qualifiers: Urinary tract infection type: acute cystitis Hematuria presence: without hematuria Qualified Code(s): N30.00 - Acute cystitis without hematuria (3) History of miscarriage Current Visit: Yes Status: Acute
[2017-05-28] MEDS: TYLENOL PO PRN (18:09)
[2017-05-28] MEDS: DOXYCYCLINE HYCLATE 100 MG in NACL 0.9% 250ML 250 ML IV SCH (19:40)
[2017-05-28] MEDS: CYTOTEC PO SCH ×2 (19:41→22:58)
--- NOTE | 2017-05-28 20:31 | Ultrasound Report ---
FINAL REPORT EXAM: US ABDOMEN COMPLETE HISTORY: severe sepsis eval for renal abscess, pyelo and kidney stones TECHNIQUE: Standard ultrasound of the abdomen PRIORS: None. FINDINGS: Examination of the gallbladder demonstrates multiple echogenic shadowing gallstones. There is a small amount of pericholecystic fluid noted which is nonspecific. There also small amount of ascites in the right upper quadrant. No evidence for distention or wall thickening. No sonographic Dietz's sign is elicited. Common bile duct is normal in diameter measuring 3.6 mm. The liver is normal and homogeneous in echogenicity without focal abnormality or intrahepatic biliary dilatation. The pancreas is normal in thickness without focal abnormality or pancreatic duct dilatation. The spleen is normal in length measuring 10.7 cm and homogeneous in echogenicity without focal abnormalities. Examination of the kidneys demonstrates both to be normal in size and have normal cortical echogenicity and thickness. However, the right kidney is larger than the left kidney. The right and left kidneys measure 12.4 cm and 10.8 cm in craniocaudal length, respectively. A 5 mm echogenic non shadowing focus is seen in the lower pole left kidney, probably a nonobstructing calculus. No evidence for hydronephrosis or solid mass is seen in either kidney. The inferior vena cava and aorta are normal. Maximum diameter of the aorta is 1.4 cm in its proximal portion. IMPRESSION: 1. Gallbladder demonstrates multiple gallstones within it. There is a small amount of nonspecific pericholecystic fluid and ascites in the right upper quadrant. 2. Echogenic non shadowing focus in the lower pole of the left kidney, probably consistent with a nonobstructing calculus.
[2017-05-28 22:19] LABS: Hemoglobin 7.6 gm/dl (10.1-14.3)
[2017-05-29] MEDS: TYLENOL PO PRN (00:14)
[2017-05-29] MEDS: D5NS 1,000 ML IV SCH (02:17)
[2017-05-29] MEDS: ZOSYN/NS 3.375GM/50ML 3.375 GM/50 ML BAG IV SCH ×2 (02:18→08:55)
[2017-05-29] MEDS: CYTOTEC PO SCH (02:21)
[2017-05-29] MEDS: DOXYCYCLINE HYCLATE 100 MG in NACL 0.9% 250ML 250 ML IV SCH ×2 (04:48→17:21)
--- NOTE | 2017-05-29 09:07 | Progress Note ---
Assessment and Plan A: 27-year-old with sepsis -UTI -?Endometritis issues: -She is s/p D&C on 05/05/2017 at ~ 13 wks (unsure if Missed AB or TAB) P: -Await culture results, especially sensitivities -Disposition as per ID and hospitalist team - Patient Problems (1) Sepsis Current Visit: Yes Status: Acute Qualifiers: Sepsis type: sepsis due to unspecified organism Qualified Code(s): A41.9 - Sepsis, unspecified organism (2) UTI (urinary tract infection) Current Visit: Yes Status: Acute Qualifiers: Urinary tract infection type: acute cystitis Hematuria presence: without hematuria Qualified Code(s): N30.00 - Acute cystitis without hematuria (3) History of miscarriage Current Visit: Yes Status: Acute Subjective - Subjective Date of service: 05/29/17 Principal diagnosis: Sepsis, UTI, s/p SAB X ~ 3 weeks ago Interval history: Patient seen and examined, stable. She is doing much better at this morning clinically, denies any body aches no nausea vomiting no diarrhea no vaginal bleeding. Has adequate bowel bladder function, she desires to be discharged home. Review of chart shows had increased temperature last night. Still await speciation and sensitivity for her UTI After obtaining an old referral note from the patient, I called "[employer] at [phone]". It appears patient presented to the clinic on 05/05/2017 with a 13 week . She subsequently had a D&C, I am unclear if this was a Missed AB or a TAB. She did receive preoperative Doxycycline prior to the procedure. Patient reports: appetite normal, voiding normally, pain well controlled, flatus , ambulating normally, no dizzy ambulation, no nauseated Objective - Vital Signs Latest vital signs: Vital Signs Temp Pulse Resp BP Pulse Ox 05/29/17 08:06 99.8 F H 91 H 20 100/62 93 05/29/17 06:19 98.8 F 05/28/17 23:41 100.8 F H 111 H 18 110/55 92 05/28/17 17:06 100.1 F H 111 H 20 121/76 93 05/28/17 15:14 18 05/28/17 14:44 20 05/28/17 11:26 98.8 F 105 H 18 107/68 90 05/28/17 10:00 20 99 Intake and Output 05/28/17 05/29/17 05/29/17 23:59 07:59 15:59 Intake Total 600 1000 Balance 600 1000 Intake: IV 300 1000 D5ns 1,000 ml @ 125 mls/ 1000 hr IV DIRECT JEAN CARLOS Rx#: [id number] Doxycycline Hyclate 100 250 mg In NaCl 0.9% 250Ml 250 ml @ 250 mls/hr IV Q12H JEAN CARLOS Rx#:[id number] ZOSYN/NS 3.375GM/50ML 3. 50 375 gm In 50 ml @ 100 mls /hr IV Q6H JEAN CARLOS Rx#: [id number] Oral 300 Other: Total, Intake Amount 300 Voiding Method Toilet # Voids Void 1 - Exam Abdomen: Present: normal appearance, soft. Absent: distention, tenderness, guarding, rigidity Uterus: Absent: firm, tenderness Extremities: Present: normal - Labs Labs: Abnormal lab results 05/28/17 05/28/17 05/28/17 Range/Units 08:03 13:32 22:01 Hgb 7.5 L 7.6 L (10.1-14.3) gm/dl Hct 22.9 L 23.0 L (30.3-42.9) % Potassium 3.4 L (3.6-5.0) mmol/L Chloride 110.6 H (98-107) mmol/L Carbon Dioxide 19 L (22-30) mmol/L BUN 5 L (7-17) mg/dL Creatinine 0.3 L (0.7-1.2) mg/dL Glucose 108 H (65-100) mg/dL Calcium 7.2 L (8.4-10.2) mg/dL
[2017-05-29] MEDS: PEPCID IV SCH (10:22)
[2017-05-29] MEDS: SODIUM CHLORIDE FLUSH SYRINGE 10 ML IV SCH ×2 (10:23→21:24)
--- NOTE | 2017-05-29 10:26 | Gastroenterology Consultation ---
<CASSIE EPPS - Last Filed: 05/29/17 10:33> History of Present Illness - Reason for Consult Consult date: 05/29/17 gallstones, pericholecystic fluid Requesting physician: CHACE BLACKBURN - History of Present Illness Patient is a 27 y/o female who presented to ED with c/o generalized malaise, body aches, diffuse headache, nausea/vomiting, and vaginal bleeding s/p D&C 3 weeks ago. She was admitted with sepsis due to possible endometritis vs UTI. OB/ [employer] and ID following. She underwent an abd U/S that showed gallstones and nonspecific pericholecystic fluid to which GI has been consulted. This morning pt was sitting up in bed finishing her breakfast. She reports feeling better today w/o any GI complaints and wishes to be d/c home. Denies wt loss, CP, SOB, jaundice, abd pain, N/V, heartburn, diarrhea, constipation, or signs of bleeding such as hematemesis, melena, or hematochezia. Past History Past Medical History: No medical history Past Surgical History: Other (D&C) Social history: , full code. denies: smoking, alcohol abuse, prescription drug abuse, IV drug use Family history: no significant family history Medications and Allergies Allergies Allergy/AdvReac Type Severity Reaction Status Date / Time No Known Allergies Allergy Unverified 05/27/17 07:14 Home Medications Medication Instructions Recorded Confirmed Last Taken Type No Known Home Medications [No 05/27/17 05/27/17 Unknown History Reported Home Medications] Active Meds: Active Medications Acetaminophen (Tylenol) 650 mg PO Q4H PRN PRN Reason: Pain MILD(1-3)/Fever >100.5/BENDER Last Admin: 05/29/17 00:14 Dose: 650 mg Famotidine (Pepcid) 20 mg IV BID JEAN CARLOS Last Admin: 05/29/17 10:22 Dose: 20 mg Hydromorphone HCl (Dilaudid) 0.5 mg IV Q3H PRN PRN Reason: Pain , Severe (7-10) Last Admin: 05/28/17 18:47 Dose: 0.5 mg Piperacillin Sod/Tazobactam Sod (Zosyn/Ns 3.375gm/50ml) 3.375 gm in 50 mls @ 100 mls/hr IV Q6H JEAN CARLOS Last Admin: 05/29/17 02:18 Dose: 100 mls/hr Doxycycline Hyclate 100 mg/ (Sodium Chloride) 250 mls @ 250 mls/hr IV Q12H [facility] ; Protocol Last Admin: 05/29/17 04:48 Dose: 250 mls/hr Dextrose/Sodium Chloride (D5ns) 1,000 mls @ 125 mls/hr IV DIRECT JEAN CARLOS Last Admin: 05/29/17 02:17 Dose: 125 mls/hr Morphine Sulfate (Morphine) 2 mg IV Q4H PRN PRN Reason: Pain, Moderate (4-6) Last Admin: 05/28/17 14:44 Dose: 2 mg Ondansetron HCl (Zofran) 4 mg IV Q8H PRN PRN Reason: Nausea And Vomiting Last Admin: 05/28/17 14:44 Dose: 4 mg Oxycodone/Acetaminophen (Percocet 5/325) 1 tab PO Q6H PRN PRN Reason: Pain, Moderate (4-6) Sodium Chloride (Sodium Chloride Flush Syringe 10 Ml) 10 ml IV BID JEAN CARLOS Last Admin: 05/28/17 22:41 Dose: 10 ml Sodium Chloride (Sodium Chloride Flush Syringe 10 Ml) 10 ml IV PRN PRN PRN Reason: LINE FLUSH Last Admin: 05/28/17 14:56 Dose: 10 ml Zolpidem Tartrate (Ambien) 5 mg PO QHS PRN PRN Reason: Insomnia Review of Systems - Review of Systems All systems: negative Gastrointestinal: no abdominal pain, no nausea, no vomiting Exam - Constitutional Vital Signs: Temp Pulse Resp BP Pulse Ox 99.8 F H 91 H 20 100/62 93 05/29/17 08:06 05/29/17 08:06 05/29/17 08:06 05/29/17 08:06 05/29/17 08:06 General appearance: no acute distress, well-nourished - Respiratory Respiratory: bilateral: CTA - Cardiovascular Rhythm: regular Heart Sounds: Present: S1 & S2 - Gastrointestinal General gastrointestinal: Present: soft, non-tender, non-distended, normal bowel sounds - Neurologic Neurological: alert and oriented x3 - Labs CBC & Chem 7: 05/28/17 22:01 05/28/17 08:03 Lab Results: Laboratory Results - last 24 hr 05/28/17 05/28/17 05/28/17 13:32 16:55 22:01 Hgb 7.5 L 7.6 L Hct 22.9 L 23.0 L HIV 1&2 Antibody Rapid Non react HIV P24 Antigen Non react Assessment and Plan 1.gallstones 2.sepsis 3.h/o miscarriage -T.kellen 2.60 -AST, ALT, alk phos-WNL -abd U/S showed gallstones and small amount of nonspecific pericholecystic fluid with ascites in RUQ -pt currently asymptomatic w/o GI complaints such as abd pain or N/V -tolerating diet -recommend further evaluation with an outpatient HIDA scan -pt okay to be d/c per GI standpoint with a f/u clinic appt in 2 weeks -will sign off, please call if needed <ALLISON RUIZ - Last Filed: 05/29/17 12:53> Medications and Allergies Active Meds: Active Medications Acetaminophen (Tylenol) 650 mg PO Q4H PRN PRN Reason: Pain MILD(1-3)/Fever >100.5/BENDER Last Admin: 05/29/17 00:14 Dose: 650 mg Famotidine (Pepcid) 20 mg IV BID JEAN CARLOS Last Admin: 05/29/17 10:22 Dose: 20 mg Hydromorphone HCl (Dilaudid) 0.5 mg IV Q3H PRN PRN Reason: Pain , Severe (7-10) Last Admin: 05/28/17 18:47 Dose: 0.5 mg Piperacillin Sod/Tazobactam Sod (Zosyn/Ns 3.375gm/50ml) 3.375 gm in 50 mls @ 100 mls/hr IV Q6H JEAN CARLOS Last Admin: 05/29/17 08:55 Dose: 100 mls/hr Doxycycline Hyclate 100 mg/ (Sodium Chloride) 250 mls @ 250 mls/hr IV Q12H JEAN CARLOS ; Protocol Last Admin: 05/29/17 04:48 Dose: 250 mls/hr Sodium Chloride (Nacl 0.9% 1000 Ml) 1,000 mls @ 125 mls/hr IV DIRECT JEAN CARLOS Last Admin: 05/29/17 12:49 Dose: 125 mls/hr Morphine Sulfate (Morphine) 2 mg IV Q4H PRN PRN Reason: Pain, Moderate (4-6) Last Admin: 05/28/17 14:44 Dose: 2 mg Ondansetron HCl (Zofran) 4 mg IV Q8H PRN PRN Reason: Nausea And Vomiting Last Admin: 05/28/17 14:44 Dose: 4 mg Oxycodone/Acetaminophen (Percocet 5/325) 1 tab PO Q6H PRN PRN Reason: Pain, Moderate (4-6) Sodium Chloride (Sodium Chloride Flush Syringe 10 Ml) 10 ml IV BID JEAN CARLOS Last Admin: 05/29/17 10:23 Dose: 10 ml Sodium Chloride (Sodium Chloride Flush Syringe 10 Ml) 10 ml IV PRN PRN PRN Reason: LINE FLUSH Last Admin: 05/28/17 14:56 Dose: 10 ml Zolpidem Tartrate (Ambien) 5 mg PO QHS PRN PRN Reason: Insomnia Exam - Constitutional Vital Signs: Temp Pulse Resp BP Pulse Ox 99.8 F H 91 H 20 100/62 93 05/29/17 08:06 05/29/17 08:06 05/29/17 08:06 05/29/17 08:06 05/29/17 08:06 - Labs CBC & Chem 7: 05/29/17 11:22 05/29/17 11:22 Lab Results: Laboratory Results - last 24 hr 05/28/17 05/28/17 05/28/17 13:32 16:55 22:01 WBC RBC Hgb 7.5 L 7.6 L Hct 22.9 L 23.0 L MCV MCH MCHC RDW Plt Count Lymph % (Auto) [place] % (Auto) Eos % (Auto) Baso % (Auto) Lymph # [place] # Eos # Baso # Seg Neutrophils % Seg Neutrophils # Sodium Potassium Chloride Carbon Dioxide Anion Gap BUN Creatinine Estimated GFR BUN/Creatinine Ratio Glucose Calcium HIV 1&2 Antibody Rapid Non react HIV P24 Antigen Non react 05/29/17 05/29/17 11:22 11:22 WBC 8.0 RBC 2.31 L Hgb 7.6 L Hct 22.2 L MCV 96 MCH 33 H MCHC 34 RDW 16.1 H Plt Count 237 Lymph % (Auto) 20.2 [place] % (Auto) 11.1 H Eos % (Auto) 0.2 Baso % (Auto) 0.2 Lymph # 1.6 [place] # 0.9 H Eos # 0.0 Baso # 0.0 Seg Neutrophils % 68.3 Seg Neutrophils # 5.5 Sodium 140 Potassium 3.1 L Chloride 107.7 H Carbon Dioxide 21 L Anion Gap 14 BUN 3 L Creatinine 0.5 L D Estimated GFR > 60 BUN/Creatinine Ratio 6 Glucose 108 H Calcium 7.8 L HIV 1&2 Antibody Rapid HIV P24 Antigen Assessment and Plan - Patient Problems (1) Gallstones Current Visit: Yes Status: Acute Plan to address problem: The patient has gallstones, but no symptoms of cholecystitis and no sonographic signs of acute cholecystitis. LFTs are normal and biliary ducts are not dilated. Gallstones appear to be asymptomatic at this time. She was apprised that eventually they will become symptomatic and surgery will be needed, but observation is recommended at this time. Thank you for asking us to see her in consultation. (2) History of miscarriage Current Visit: Yes Status: Acute (3) Sepsis Current Visit: Yes Status: Acute Qualifiers: Sepsis type: sepsis due to unspecified organism Qualified Code(s): A41.9 - Sepsis, unspecified organism (4) UTI (urinary tract infection) Current Visit: Yes Status: Acute Qualifiers: Urinary tract infection type: acute cystitis Hematuria presence: without hematuria Qualified Code(s): N30.00 - Acute cystitis without hematuria
[2017-05-29 11:50] LABS: Basophils % (Auto) 0.2 % (0.0-1.8); Eosinophils % (Auto) 0.2 % (0.0-4.3); Hematocrit 22.2 % (30.3-42.9); Hemoglobin 7.6 gm/dl (10.1-14.3); Lymphocytes # (Auto) 1.6 K/mm3 (1.2-5.4); Lymphocytes % (Auto) 20.2 % (13.4-35.0); Mean Corpuscular HGB Conc 34 % (30-34); Mean Corpuscular Hemoglobin 33 pg (28-32); Mean Corpuscular Volume 96 fl (79-97); Monocytes # (Auto) 0.9 K/mm3 (0.0-0.8); Monocytes % (Auto) 11.1 % (0.0-7.3); Platelet Count 237 K/mm3 (140-440); Red Blood Count 2.31 M/mm3 (3.65-5.03); Red Cell Distribution Width 16.1 % (13.2-15.2)
[2017-05-29 12:09] LABS: BUN/Creatinine Ratio 6; Blood Urea Nitrogen 3 mg/dL (7-17); Calcium 7.8 mg/dL (8.4-10.2); Hemolysis Index 3
[2017-05-29] MEDS: NACL 0.9% 1000 ML 1,000 ML IV SCH (12:49)
--- NOTE | 2017-05-29 13:47 | Progress Note ---
<CHHAYA EVANS - Last Filed: 05/29/17 13:43> Assessment and Plan Assessment and plan: Sepsis Cont IV antibiotics, Zosyn d/cd, Cefepime initiated Follow blood cultures, ID following UTI Culture showed E Coli Resistant to Zosyn, pt initiated on Cefepime Hypotension Likely from above, continue hydration with NS Hypokalemia supplemented Anemia Will continue to monitor, no sign of active bleed, H/H stable Transfuse if Hgb <7 Endometrial thickening on US LABOR DELIVERY RN following, s/p D&C on 05/05/2017 History of Miscarriage Gallstones abd U/S showed gallstones and small amount of nonspecific pericholecystic fluid with ascites in RUQ GI following pt currently asymptomatic w/o GI complaints such as abd pain or N/V , F/U OP for HIDA scan DVT prophylaxis SCDs History Interval history: Patient seen and examined. She has no complaints today, says she feels better. She denies SOB, CP, NV, abdominal pain or bleeding. Labs and nursing notes reviewed. Hospitalist Physical - Constitutional Vitals: Temp Pulse Resp BP Pulse Ox 99.8 F H 91 H 20 100/62 93 05/29/17 08:06 05/29/17 08:06 05/29/17 08:06 05/29/17 08:06 05/29/17 08:06 General appearance: Present: no acute distress, well-nourished - EENT Eyes: Present: PERRL, EOM intact ENT: hearing intact, clear oral mucosa - Neck Neck: Present: supple, normal ROM - Respiratory Respiratory effort: normal Respiratory: bilateral: CTA - Cardiovascular Rhythm: regular Heart Sounds: Present: S1 & S2 - Extremities Extremities: no ischemia, No edema - Abdominal General gastrointestinal: soft, non-tender, non-distended - Integumentary Integumentary: Present: clear, warm, dry - Psychiatric Psychiatric: appropriate mood/affect, intact judgment & insight, cooperative - Neurologic Neurologic: CNII-XII intact, moves all extremities - Allied Health Allied health notes reviewed: nursing Results - Labs CBC & Chem 7: 05/29/17 11:22 05/29/17 11:22 Labs: Laboratory Last Values WBC 8.0 K/mm3 (4.5-11.0) 05/29/17 11:22 RBC 2.31 M/mm3 (3.65-5.03) L 05/29/17 11:22 Hgb 7.6 gm/dl (10.1-14.3) L 05/29/17 11: Hct 22.2 % (30.3-42.9) L 05/29/17 11:22 MCV 96 fl (79-97) 05/29/17 11:22 MCH 33 pg (28-32) H 05/29/17 11:22 MCHC 34 % (30-34) 05/29/17 11:22 RDW 16.1 % (13.2-15.2) H 05/29/17 11:22 Plt Count 237 K/mm3 (140-440) 05/29/17 11:22 Lymph % (Auto) 20.2 % (13.4-35.0) 05/29/17 11:22 [place] % (Auto) 11.1 % (0.0-7.3) H 05/29/17 11:22 Eos % (Auto) 0.2 % (0.0-4.3) 05/29/17 11:22 Baso % (Auto) 0.2 % (0.0-1.8) 05/29/17 11:22 Lymph # 1.6 K/mm3 (1.2-5.4) 05/29/17 11: [place] # 0.9 K/mm3 (0.0-0.8) H 05/29/17 11:22 Eos # 0.0 K/mm3 (0.0-0.4) 05/29/17 11: Baso # 0.0 K/mm3 (0.0-0.1) 05/29/17 11:22 Seg Neutrophils % 68.3 % (40.0-70.0) 05/29/17 11: Seg Neutrophils # 5.5 K/mm3 (1.8-7.7) 05/29/17 11:22 PT 15.1 Sec. (12.2-14.9) H 05/27/17 07:02 INR 1.13 (0.87-1.13) 05/27/17 07:02 APTT 36.0 Sec. (24.2-36.6) 05/27/17 07:02 POC ABG pH 7.423 (7.35-7.45) 05/27/17 06:58 POC ABG pCO2 32.9 (35-45) L 05/27/17 06:58 POC ABG pO2 97 (80-105) 05/27/17 06:58 POC ABG HCO3 21.5 05/27/17 06:58 POC ABG Total CO2 23 05/27/17 06:58 POC ABG O2 Sat 98 05/27/17 06:58 POC ABG Base Excess -3 05/27/17 06:58 ABG Carboxyhemoglobin 1.3 % (0.0-5.0) 05/27/17 Unknown FiO2 21 % 05/27/17 06:58 Sodium 140 mmol/L (137-145) 05/29/17 11:22 Potassium 3.1 mmol/L (3.6-5.0) L 05/29/17 11:22 Chloride 107.7 mmol/L (98-107) H 05/29/17 11:22 Carbon Dioxide 21 mmol/L (22-30) L 05/29/17 11:22 Anion Gap 14 mmol/L 05/29/17 11:22 BUN 3 mg/dL (7-17) L 05/29/17 11:22 Creatinine 0.5 mg/dL (0.7-1.2) L D 05/29/17 11:22 Estimated GFR > 60 ml/min 05/29/17 11:22 BUN/Creatinine Ratio 6 % 05/29/17 11:22 Glucose 108 mg/dL (65-100) H 05/29/17 11:22 Hemoglobin A1c 5.1 % (4-6) 05/27/17 23:54 Lactic Acid 0.80 mmol/L (0.7-2.0) 05/27/17 09:46 Calcium 7.8 mg/dL (8.4-10.2) L 05/29/17 11:22 Total Bilirubin 2.60 mg/dL (0.1-1.2) H 05/28/17 03:56 Direct Bilirubin 0.4 mg/dL (0-0.2) H 05/27/17 07:02 Indirect Bilirubin 2.5 mg/dL 05/27/17 07:02 AST 35 units/L (5-40) 05/28/17 03:56 ALT 20 units/L (7-56) 05/28/17 03:56 Alkaline Phosphatase 73 units/L (35-129) 05/28/17 03:56 Troponin T < 0.010 ng/mL (0.00-0.029) 05/27/17 07:02 NT-Pro-B Natriuret Pep 555.0 pg/mL (0-450) H 05/27/17 07:05 Total Protein 4.7 g/dL (6.3-8.2) L D 05/28/17 03:56 Albumin 2.5 g/dL (3.9-5) L 05/28/17 03:56 Albumin/Globulin Ratio 1.1 % 05/28/17 03:56 HCG, Qual Positive (Negative) 05/27/17 07:05 HCG, Quant 5.08 mIU/mL (0-4) H 05/28/17 00:00 Urine Color Yellow (Yellow) 05/27/17 08:50 Urine Turbidity Cloudy (Clear) 05/27/17 08:50 Urine pH 5.0 (5.0-7.0) 05/27/17 08:50 Ur Specific [place] 1.005 (1.003-1.030) 05/27/17 08:50 Urine Protein <15 mg/dl mg/dL (Negative) 05/27/17 08:50 Urine Glucose (UA) Neg mg/dL (Negative) 05/27/17 08:50 Urine Ketones 20 mg/dL (Negative) 05/27/17 08:50 Urine Blood Sm (Negative) 05/27/17 08:50 Urine Nitrite Neg (Negative) 05/27/17 08:50 Urine Bilirubin Neg (Negative) 05/27/17 08:50 Urine Urobilinogen < 2.0 mg/dL (<2.0) 05/27/17 08:50 Ur Leukocyte Esterase Lg (Negative) 05/27/17 08:50 Urine WBC (Auto) > 182.0 /HPF (0.0-6.0) H 05/27/17 08:50 Urine RBC (Auto) 3.0 /HPF (0.0-6.0) 05/27/17 08:50 U Epithel Cells (Auto) 5.0 /HPF (0-13.0) 05/27/17 08:50 Urine Bacteria (Auto) 1+ /HPF (Negative) 05/27/17 08:50 Urine HCG, Qual Positive (Negative) A 05/27/17 08:50 HIV 1&2 Antibody Rapid Non react (Non React) 05/28/17 16:55 HIV P24 Antigen Non react (Non React) 05/28/17 16:55 <CHACE BLACKBURN O - Last Filed: 05/29/17 18:29> Assessment and Plan Assessment and plan: I saw and evaluated the patient. I agree with the findings and the plan of care as documented in the Nurse Practitioner's~note, with the following corrections and additions. patient with recent loss, now with sepsis, UTI, gall stones. To rule out cholecystitis. Discussed with ID Physician and [employer]ingle Catcher Hospitalist Physical - Constitutional Vitals: Temp Pulse Resp BP Pulse Ox 99.6 F 62 20 112/69 95 05/29/17 15:27 05/29/17 15:27 05/29/17 15:27 05/29/17 15:27 05/29/17 15:27 Results - Labs CBC & Chem 7: 05/29/17 11:22 05/29/17 11:22 Labs: Laboratory Last Values WBC 8.0 K/mm3 (4.5-11.0) 05/29/17 11:22 RBC 2.31 M/mm3 (3.65-5.03) L 05/29/17 11:22 Hgb 7.6 gm/dl (10.1-14.3) L 05/29/17 11:22 Hct 22.2 % (30.3-42.9) L 05/29/17 11:22 MCV 96 fl (79-97) 05/29/17 11:22 MCH 33 pg (28-32) H 05/29/17 11:22 MCHC 34 % (30-34) 05/29/17 11:22 RDW 16.1 % (13.2-15.2) H 05/29/17 11:22 Plt Count 237 K/mm3 (140-440) 05/29/17 11:22 Lymph % (Auto) 20.2 % (13.4-35.0) 05/29/17 11:22 [place] % (Auto) 11.1 % (0.0-7.3) H 05/29/17 11:22 Eos % (Auto) 0.2 % (0.0-4.3) 05/29/17 11:22 Baso % (Auto) 0.2 % (0.0-1.8) 05/29/17 11:22 Lymph # 1.6 K/mm3 (1.2-5.4) 05/29/17 11:22 [place] # 0.9 K/mm3 (0.0-0.8) H 05/29/17 11:22 Eos # 0.0 K/mm3 (0.0-0.4) 05/29/17 11:22 Baso # 0.0 K/mm3 (0.0-0.1) 05/29/17 11:22 Seg Neutrophils % 68.3 % (40.0-70.0) 05/29/17 11: Seg Neutrophils # 5.5 K/mm3 (1.8-7.7) 05/29/17 11:22 PT 15.1 Sec. (12.2-14.9) H 05/27/17 07:02 INR 1.13 (0.87-1.13) 05/27/17 07:02 APTT 36.0 Sec. (24.2-36.6) 05/27/17 07:02 POC ABG pH 7.423 (7.35-7.45) 05/27/17 06:58 POC ABG pCO2 32.9 (35-45) L 05/27/17 06:58 POC ABG pO2 97 (80-105) 05/27/17 06:58 POC ABG HCO3 21.5 05/27/17 06:58 POC ABG Total CO2 23 05/27/17 06:58 POC ABG O2 Sat 98 05/27/17 06:58 POC ABG Base Excess -3 05/27/17 06:58 ABG Carboxyhemoglobin 1.3 % (0.0-5.0) 05/27/17 Unknown FiO2 21 % 05/27/17 06:58 Sodium 140 mmol/L (137-145) 05/29/17 11:22 Potassium 3.1 mmol/L (3.6-5.0) L 05/29/17 11:22 Chloride 107.7 mmol/L (98-107) H 05/29/17 11:22 Carbon Dioxide 21 mmol/L (22-30) L 05/29/17 11:22 Anion Gap 14 mmol/L 05/29/17 11:22 BUN 3 mg/dL (7-17) L 05/29/17 11:22 Creatinine 0.5 mg/dL (0.7-1.2) L D 05/29/17 11:22 Estimated GFR > 60 ml/min 05/29/17 11:22 BUN/Creatinine Ratio 6 % 05/29/17 11:22 Glucose 108 mg/dL (65-100) H 05/29/17 11:22 Hemoglobin A1c 5.1 % (4-6) 05/27/17 23:54 Lactic Acid 0.80 mmol/L (0.7-2.0) 05/27/17 09:46 Calcium 7.8 mg/dL (8.4-10.2) L 05/29/17 11:22 Total Bilirubin 2.60 mg/dL (0.1-1.2) H 05/28/17 03:56 Direct Bilirubin 0.4 mg/dL (0-0.2) H 05/27/17 07:02 Indirect Bilirubin 2.5 mg/dL 05/27/17 07:02 AST 35 units/L (5-40) 05/28/17 03:56 ALT 20 units/L (7-56) 05/28/17 03:56 Alkaline Phosphatase 73 units/L (35-129) 05/28/17 03:56 Troponin T < 0.010 ng/mL (0.00-0.029) 05/27/17 07:02 NT-Pro-B Natriuret Pep 555.0 pg/mL (0-450) H 05/27/17 07:05 Total Protein 4.7 g/dL (6.3-8.2) L D 05/28/17 03:56 Albumin 2.5 g/dL (3.9-5) L 05/28/17 03:56 Albumin/Globulin Ratio 1.1 % 05/28/17 03:56 HCG, Qual Positive (Negative) 05/27/17 07:05 HCG, Quant 5.08 mIU/mL (0-4) H 05/28/17 00:00 Urine Color Yellow (Yellow) 05/27/17 08:50 Urine Turbidity Cloudy (Clear) 05/27/17 08:50 Urine pH 5.0 (5.0-7.0) 05/27/17 08:50 Ur Specific [place] 1.005 (1.003-1.030) 05/27/17 08:50 Urine Protein <15 mg/dl mg/dL (Negative) 05/27/17 08:50 Urine Glucose (UA) Neg mg/dL (Negative) 05/27/17 08:50 Urine Ketones 20 mg/dL (Negative) 05/27/17 08:50 Urine Blood Sm (Negative) 05/27/17 08:50 Urine Nitrite Neg (Negative) 05/27/17 08:50 Urine Bilirubin Neg (Negative) 05/27/17 08:50 Urine Urobilinogen < 2.0 mg/dL (<2.0) 05/27/17 08:50 Ur Leukocyte Esterase Lg (Negative) 05/27/17 08:50 Urine WBC (Auto) > 182.0 /HPF (0.0-6.0) H 05/27/17 08:50 Urine RBC (Auto) 3.0 /HPF (0.0-6.0) 05/27/17 08:50 U Epithel Cells (Auto) 5.0 /HPF (0-13.0) 05/27/17 08:50 Urine Bacteria (Auto) 1+ /HPF (Negative) 05/27/17 08:50 Urine HCG, Qual Positive (Negative) A 05/27/17 08:50 HIV 1&2 Antibody Rapid Non react (Non React) 05/28/17 16:55 HIV P24 Antigen Non react (Non React) 05/28/17 16:55
[2017-05-29] MEDS ORDERED: MAXIPIME/NS 2 GM/100 ML 2 GM/100 ML BAG IV SCH (14:00)
[2017-05-29] MEDS: K-DUR PO SCH ×2 (14:18→21:23)
[2017-05-29] MEDS ORDERED: MAXIPIME 2 GM in NACL 0.9% 20 ML IV SCH (15:00)
--- NOTE | 2017-05-29 17:10 | Progress Note ---
Assessment and Plan Assessment: 1) Severe Sepsis: better. Leukocytosis resolved, fever trending down. Etiology most likely UTI +/- GB 2) No evidence of Acute endometritis per COLLECTOR -Transvaginal ultrasound showed endometrial thickening and possible retained products of conception. -HIV neg 3) Spontaneous loss: 3 weeks ago 4) UTI: Urine culture E coli resistant to zosyn 5) Anemia 6) Cholecystitis ? Plan: -obtain HIDA -stop Zosyn -stop cefepime -start ceftriaxone 1 g IV qday -add flagyl until cholecystitis r/o -stop doxy -Follow up blood cultures and urine culture -upon discharge will do ceftin 500 mg PO q12h total 10 days until 06/06 I will be off until 06/02 call me if questions Flores Gamboa MD Infectious Diseases Specialist [facility] ([facility] M [phone] O [phone] Subjective Date of service: 05/29/17 Principal diagnosis: Sepsis, UTI, s/p SAB X ~ 3 weeks ago Interval history: Feels better, fever trending down. tmax 100.8. denies abd pain, N/V. Microbiology: Blood cultures: 05/27 ngtd Urine cultures: 05/27 E coli resistant to amp, zosyn and bactrim Current Antimicrobials: Zosyn doxycycline Previous Antimicrobials: Vancomycin Objective - Exam Narrative Exam: General appearance: Alert inNAD pleasant Eyes: anicteric sclerae, moist conjunctivae; no lid-lag; PERRLA HENT: Atraumatic; oropharynx clear Neck: Trachea midline; supple, no thyromegaly or lymphadenopathy Lungs: CTA CV: rrr Abdomen: Soft non tender Extremities: No peripheral edema or extremity lymphadenopathy Skin: Normal temperature, turgor and texture; no rash, ulcers or subcutaneous nodules Psych: Anxious. Neuro: alert and oriented x 3. Moving all extermities Lines: No CVL / PICC - Constitutional Vitals: Vital Signs Temp Pulse Resp BP Pulse Ox 99.6 F 62 20 112/69 95 05/29/17 15:27 05/29/17 15:27 05/29/17 15:27 05/29/17 15:27 05/29/17 15:27 Temperature -Last 24 Hours Temperature 99.6 F Temperature 99.8 F Temperature 98.8 F Temperature 100.8 F Temperature 100.1 F - Labs CBC & Chem 7: 05/29/17 11:22 05/29/17 11:22 Labs: Abnormal lab results 05/28/17 05/29/17 05/29/17 Range/Units 22:01 11:22 11:22 RBC 2.31 L (3.65-5.03) M/mm3 Hgb 7.6 L 7.6 L (10.1-14.3) gm/dl Hct 23.0 L 22.2 L (30.3-42.9) % MCH 33 H (28-32) pg RDW 16.1 H (13.2-15.2) % [place] % (Auto) 11.1 H (0.0-7.3) % [place] # 0.9 H (0.0-0.8) K/mm3 Potassium 3.1 L (3.6-5.0) mmol/L Chloride 107.7 H (98-107) mmol/L Carbon Dioxide 21 L (22-30) mmol/L BUN 3 L (7-17) mg/dL Creatinine 0.5 L D (0.7-1.2) mg/dL Glucose 108 H (65-100) mg/dL Calcium 7.8 L (8.4-10.2) mg/dL
[2017-05-29] MEDS: FLAGYL 500 MG/100 ML 500 MG/100 ML BAG IV SCH (17:36)
[2017-05-29] MEDS ORDERED: ROCEPHIN/NS 1 GM/50 ML 1 GM/50 ML BAG IV SCH (18:00)
[2017-05-29] MEDS: cefTRIAXone 1 GM in NACL 0.9% 20 ML IV SCH (18:59)
[2017-05-29] MEDS: PEPCID PO SCH (21:24)
[2017-05-30] MEDS: NACL 0.9% 1000 ML 1,000 ML IV SCH ×2 (02:15→14:40)
[2017-05-30] MEDS: FLAGYL 500 MG/100 ML 500 MG/100 ML BAG IV SCH ×3 (02:16→18:37)
--- NOTE | 2017-05-30 04:49 | Event Note ---
Date: 05/30/17 Chart reviewed, patient doing better clinically. Will sign off at this time, please call with questions
[2017-05-30 07:46] LABS: BUN/Creatinine Ratio 13; Blood Urea Nitrogen 5 mg/dL (7-17); Calcium 7.9 mg/dL (8.4-10.2); Hemolysis Index 1
[2017-05-30] MEDS: PEPCID PO SCH ×2 (09:48→22:06)
--- NOTE | 2017-05-30 09:53 | Progress Note ---
Assessment and Plan Assessment and plan: Sepsis Cont IV antibiotics, Zosyn d/cd, Cefepime initiated Blood cultures - no growth after 72 hrs ID following UTI Culture showed E Coli Resistant to Zosyn, pt initiated on Cefepime Hypotension due to sepsis Now resolved Hypokalemia. Now resolved after replacement. 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 Patient doing better. Likely dc home tomorrow. DVT prophylaxis:SCDs only because vag bleed History Interval history: Feels better, fever subsiding Hospitalist Physical - Physical exam Narrative exam: Gen appearance: Not in acute distress, lying in bed, HEENT:Normocephalic, atraumatic Neck:supple, no JVD Lungs: Clear to auscultation bilaterally, no crackles , no wheeze Heart: S1 and S2 regular, no murmurs, rubs or gallop Abdomen: soft, non tender, non distended, normal bowel sounds Ext: No edema, no clubbing, no cyanosis. Neuro: Awake, alert, oriented x 3 - Constitutional Vitals: Temp Pulse Resp BP Pulse Ox 98.9 F 75 20 102/62 97 05/30/17 08:07 05/30/17 08:07 05/30/17 08:07 05/30/17 08:07 05/30/17 08:07 General appearance: Present: no acute distress, well-nourished Results - Labs CBC & Chem 7: 05/29/17 11:22 05/30/17 06:47 Labs: Laboratory Last Values WBC 8.0 K/mm3 (4.5-11.0) 05/29/17 11:22 RBC 2.31 M/mm3 (3.65-5.03) L 05/29/17 11:22 Hgb 7.6 gm/dl (10.1-14.3) L 05/29/17 11:22 Hct 22.2 % (30.3-42.9) L 05/29/17 11:22 MCV 96 fl (79-97) 05/29/17 11:22 MCH 33 pg (28-32) H 05/29/17 11:22 MCHC 34 % (30-34) 05/29/17 11:22 RDW 16.1 % (13.2-15.2) H 05/29/17 11:22 Plt Count 237 K/mm3 (140-440) 05/29/17 11:22 Lymph % (Auto) 20.2 % (13.4-35.0) 05/29/17 11:22 [place] % (Auto) 11.1 % (0.0-7.3) H 05/29/17 11:22 Eos % (Auto) 0.2 % (0.0-4.3) 05/29/17 11:22 Baso % (Auto) 0.2 % (0.0-1.8) 05/29/17 11:22 Lymph # 1.6 K/mm3 (1.2-5.4) 05/29/17 11:22 [place] # 0.9 K/mm3 (0.0-0.8) H 05/29/17 11:22 Eos # 0.0 K/mm3 (0.0-0.4) 05/29/17 11:22 Baso # 0.0 K/mm3 (0.0-0.1) 05/29/17 11:22 Seg Neutrophils % 68.3 % (40.0-70.0) 05/29/17 11:22 Seg Neutrophils # 5.5 K/mm3 (1.8-7.7) 05/29/17 11:22 PT 15.1 Sec. (12.2-14.9) H 05/27/17 07:02 INR 1.13 (0.87-1.13) 05/27/17 07:02 APTT 36.0 Sec. (24.2-36.6) 05/27/17 07:02 POC ABG pH 7.423 (7.35-7.45) 05/27/17 06:58 POC ABG pCO2 32.9 (35-45) L 05/27/17 06:58 POC ABG pO2 97 (80-105) 05/27/17 06:58 POC ABG HCO3 21.5 05/27/17 06:58 POC ABG Total CO2 23 05/27/17 06:58 POC ABG O2 Sat 98 05/27/17 06:58 POC ABG Base Excess -3 05/27/17 06:58 ABG Carboxyhemoglobin 1.3 % (0.0-5.0) 05/27/17 Unknown FiO2 21 % 05/27/17 06:58 Sodium 137 mmol/L (137-145) 05/30/17 06:47 Potassium 3.6 mmol/L (3.6-5.0) 05/30/17 06:47 Chloride 106.6 mmol/L (98-107) 05/30/17 06:47 Carbon Dioxide 19 mmol/L (22-30) L 05/30/17 06:47 Anion Gap 15 mmol/L 05/30/17 06:47 BUN 5 mg/dL (7-17) L 05/30/17 06:47 Creatinine 0.4 mg/dL (0.7-1.2) L 05/30/17 06:47 Estimated GFR > 60 ml/min 05/30/17 06:47 BUN/Creatinine Ratio 13 % 05/30/17 06:47 Glucose 86 mg/dL (65-100) 05/30/17 06:47 Hemoglobin A1c 5.1 % (4-6) 05/27/17 23:54 Lactic Acid 0.80 mmol/L (0.7-2.0) 05/27/17 09:46 Calcium 7.9 mg/dL (8.4-10.2) L 05/30/17 06:47 Total Bilirubin 2.60 mg/dL (0.1-1.2) H 05/28/17 03:56 Direct Bilirubin 0.4 mg/dL (0-0.2) H 05/27/17 07:02 Indirect Bilirubin 2.5 mg/dL 05/27/17 07:02 AST 35 units/L (5-40) 05/28/17 03:56 ALT 20 units/L (7-56) 05/28/17 03:56 Alkaline Phosphatase 73 units/L (35-129) 05/28/17 03:56 Troponin T < 0.010 ng/mL (0.00-0.029) 05/27/17 07:02 NT-Pro-B Natriuret Pep 555.0 pg/mL (0-450) H 05/27/17 07:05 Total Protein 4.7 g/dL (6.3-8.2) L D 05/28/17 03:56 Albumin 2.5 g/dL (3.9-5) L 05/28/17 03:56 Albumin/Globulin Ratio 1.1 % 05/28/17 03:56 HCG, Qual Positive (Negative) 05/27/17 07:05 HCG, Quant 5.08 mIU/mL (0-4) H 05/28/17 00:00 Urine Color Yellow (Yellow) 05/27/17 08:50 Urine Turbidity Cloudy (Clear) 05/27/17 08:50 Urine pH 5.0 (5.0-7.0) 05/27/17 08:50 Ur Specific [place] 1.005 (1.003-1.030) 05/27/17 08:50 Urine Protein <15 mg/dl mg/dL (Negative) 05/27/17 08:50 Urine Glucose (UA) Neg mg/dL (Negative) 05/27/17 08:50 Urine Ketones 20 mg/dL (Negative) 05/27/17 08:50 Urine Blood Sm (Negative) 05/27/17 08:50 Urine Nitrite Neg (Negative) 05/27/17 08:50 Urine Bilirubin Neg (Negative) 05/27/17 08:50 Urine Urobilinogen < 2.0 mg/dL (<2.0) 05/27/17 08:50 Ur Leukocyte Esterase Lg (Negative) 05/27/17 08:50 Urine WBC (Auto) > 182.0 /HPF (0.0-6.0) H 05/27/17 08:50 Urine RBC (Auto) 3.0 /HPF (0.0-6.0) 05/27/17 08:50 U Epithel Cells (Auto) 5.0 /HPF (0-13.0) 05/27/17 08:50 Urine Bacteria (Auto) 1+ /HPF (Negative) 05/27/17 08:50 Urine HCG, Qual Positive (Negative) A 05/27/17 08:50 HIV 1&2 Antibody Rapid Non react (Non React) 05/28/17 16:55 HIV P24 Antigen Non react (Non React) 05/28/17 16:55
[2017-05-30] MEDS ORDERED: VIBRAMYCIN PO SCH (10:00)
[2017-05-30] MEDS: SODIUM CHLORIDE FLUSH SYRINGE 10 ML IV SCH ×2 (12:07→22:06)
--- NOTE | 2017-05-30 12:34 | Nuclear Medicine Report ---
HEPATOBILIARY SCAN: History: Cholecystitis. Following the injection of the radionuclide, serial scanning was obtained over the right upper quadrant. Initial imaging of the liver demonstrates a relatively normal activity pattern. Progressive concentration of the radionuclide in the bile ducts, with filling of both the gallbladder and small bowel, is identified within a normal time period. IMPRESSION: The cystic duct is patent.
[2017-05-30] MEDS: cefTRIAXone 1 GM in NACL 0.9% 20 ML IV SCH (18:38)
[2017-05-31] MEDS: FLAGYL 500 MG/100 ML 500 MG/100 ML BAG IV SCH (02:09)
[2017-05-31] MEDS: NACL 0.9% 1000 ML 1,000 ML IV SCH (02:09)
[2017-05-31 08:42] VITALS: BP 102/59
--- NOTE | 2017-05-31 09:24 | Discharge Summary ---
Providers - Providers Date of Admission: 05/27/17 15:32 Date of discharge: 05/31/17 Attending physician: CHACE BLACKBURN 05/28/17 09:27 Consult to Physician [CONS] Routine Comment: Consulting Provider: PATT RASCON Physician Instructions: Reason For Exam: sepsis 05/28/17 11:33 Consult to Physician [CONS] Routine Comment: Consulting Provider: ASHWINI MELARA Physician Instructions: Reason For Exam: endometrial thickening/ sp miscarriage 05/29/17 08:37 Consult to Physician [CONS] Routine Comment: Consulting Provider: ALLISON RUIZ Physician Instructions: Reason For Exam: gallstones,pericholecystic fluid Primary care physician: TURBINE [employer]ASUREMENTS ENGINEER Hospitalization Condition: Stable Exam - Constitutional Vitals: Temp Pulse Resp BP Pulse Ox 98.7 F 71 20 102/59 95 05/31/17 08:40 05/31/17 08:40 05/31/17 08:40 05/31/17 08:40 05/31/17 08:40 Plan Activity: advance as tolerated Diet: regular Additional Instructions: 1.Follow up with PCP at [facility] in 1 week. 2.Follow up with Dr. Melara at [facility] in 1 week Follow up with: PRIMARY CARE, [Primary Care Provider] - 3-5 Days
[2017-05-31] MEDS: PEPCID PO SCH (09:25)
[2017-05-31] MEDS: SODIUM CHLORIDE FLUSH SYRINGE 10 ML IV SCH (09:26)
== END 2017-05-31 13:44 | disposition home or self-care (01) | DRG 872 ==
LOC: ED 06:33 → 4A 15:32 → CC1 21:24 → 4A 05-28 03:52 → 3A 05-28 17:14
PROVIDERS: ADMIT Internal Medicine; ATTEND Internal Medicine
DX: A41.9 Sepsis, unspecified organism (principal); N39.0 Urinary tract infection, site not specified; N71.0 Acute inflammatory disease of uterus; Z87.59 Personal history of other complications of pregnancy, childbirth and the puerperium; E87.6 Hypokalemia; R65.20 Severe sepsis without septic shock; D64.9 Anemia, unspecified; K80.80 Other cholelithiasis without obstruction
CPT/HCPCS: 36415; 71045; 71275; 76700; 76801; 76817; 78226; 80048; 80053; 80074; 81001; 81025; 82140; 82803; 83036; 83880; 84484; 84702; 84703; 85014; 85018; 85025; 85610; 85730; 87040; 87076; 87086; 87186; 87591; 87806; 93005; 93010; 99292; A9537; J0692; J0696; J1170; J2270; J2405; J2543; J3370; J3480; J7030; J7042; J7050; Q9967

== ENCOUNTER 2017-07-13 15:23 | Emergency (ER) | payer BC ==
[2017-07-13 15:59] VITALS: BP 102/66
[2017-07-13] MEDS ORDERED: TETRACAINE 0.5% OU PRN (19:45)
[2017-07-13] MEDS ORDERED: FUL-GLO OP ONE (19:45)
--- NOTE | 2017-07-13 19:53 | Emergency Department Report ---
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 chief complaint: eye pain, eye redness -: Sudden Onset Description: sudden Location: left eye Place: home If Injury: none Eye Symptoms: redness, pain, itching, discharge, blurry vision Severity: moderate Severity scale (0 -10): 4 If Pain, Quality: burning Consistency: constant Associated Symptoms: none Treatments Prior to Arrival: none - Related Data Patient Tetanus UTD: No Previous Rx's Medication Instructions Recorded Last Taken Type Cefuroxime [Ceftin] 500 mg PO Q12H 7 Days tablet 05/31/17 Unknown Rx Cetirizine HCl [Zyrtec] 10 mg PO DAILY #30 tablet 07/13/17 Unknown Rx Ibuprofen 800 mg PO TID PRN #30 tablet 07/13/17 Unknown Rx Polymyxin B Sulf/Trimethoprim 10 ml OP Q4HR #10 ml 07/13/17 Unknown Rx [Polytrim Eye Drops] Allergies Allergy/AdvReac Type Severity Reaction Status Date / Time No Known Allergies Allergy Unverified 05/27/17 07:14 ED Review of Systems ROS: Stated complaint: LEFT EYE PAIN Other details as noted in HPI Constitutional: denies: chills, fever Eyes: eye pain, eye discharge. denies: vision change ENT: denies: ear pain, throat pain Respiratory: denies: cough, shortness of breath, wheezing Cardiovascular: denies: chest pain, palpitations Endocrine: no symptoms reported Gastrointestinal: denies: abdominal pain, nausea, diarrhea Genitourinary: denies: urgency, dysuria, discharge Musculoskeletal: denies: back pain, joint swelling, arthralgia Skin: denies: rash, lesions Neurological: denies: headache, weakness, paresthesias Psychiatric: denies: anxiety, depression Hematological/Lymphatic: denies: easy bleeding, easy bruising ED Past Medical Hx - Past Medical History Previous Medical History?: No - Surgical History Past Surgical History?: No - Social History Smoking Status: Never Smoker Substance Use Type: None - Medications Home Medications: Home Medications Medication Instructions Recorded Confirmed Last Taken Type Cefuroxime [Ceftin] 500 mg PO Q12H 7 Days tablet 05/31/17 Unknown Rx Cetirizine HCl [Zyrtec] 10 mg PO DAILY #30 tablet 07/13/17 Unknown Rx Ibuprofen 800 mg PO TID PRN #30 tablet 07/13/17 Unknown Rx Polymyxin B Sulf/Trimethoprim 10 ml OP Q4HR #10 ml 07/13/17 Unknown Rx [Polytrim Eye Drops] ED Physical Exam - General Limitations: No Limitations General appearance: alert, in no apparent distress - Head Head exam: Present: atraumatic, normocephalic - Eye Eye exam: Present: PERRL, EOMI, conjunctival injection. Absent: periorbital swelling, periorbital tenderness Pupils: Present: normal accommodation - Expanded Eye Exam Expanded Pupils: Regular, Round: Bilateral, Reactive: Bilateral Sclera/Conjunctival: Injection: Left, Exudate: Left Anterior chamber: Normal Inspection: Bilateral Posterior chamber: Deferred: Bilateral Visual acuity (R) = 20/: 20 Visual acuity (L) = 20/: 20 With correction: No IOP (L) in mmH IOP measured with: Tonopen - ENT ENT exam: Present: mucous membranes moist - Neck Neck exam: Present: normal inspection - Respiratory Respiratory exam: Present: normal lung sounds bilaterally. Absent: respiratory distress - Cardiovascular Cardiovascular Exam: Present: regular rate, normal rhythm. Absent: systolic murmur, diastolic murmur, rubs, gallop - GI/Abdominal GI/Abdominal exam: Present: soft, normal bowel sounds - Extremities Exam Extremities exam: Present: normal inspection - Back Exam Back exam: Present: normal inspection - Neurological Exam Neurological exam: Present: alert, oriented X3 - Psychiatric Psychiatric exam: Present: normal affect, normal mood - Skin Skin exam: Present: warm, dry, intact, normal color. Absent: rash ED Course Vital Signs 07/13/17 15:57 Temperature 98.2 F Pulse Rate 76 Respiratory 18 Rate Blood Pressure 102/66 O2 Sat by Pulse 97 Oximetry ED Medical Decision Making - Medical Decision Making this is a corneal abrasion vision remains 20/20 bilat, Iop: 12 mmhg via tonopent , there is conjunctival erythema, EOMI, perrla, plan: polytrim eye drops, zyrtec po, ibuprofen prn ,follow up with opthalmology as scheduled in 1 week pt will return to ed if symptoms worsen. Critical care attestation.: If time is entered above; I have spent that time in minutes in the direct care of this critically ill patient, excluding procedure time. ED Disposition Clinical Impression: Conjunctivitis Qualifiers: Conjunctivitis type: acute Acute conjunctivitis type: bacterial Laterality: left Qualified Code(s): H10.32 - Unspecified acute conjunctivitis, left eye Corneal abrasion, left Qualifiers: Encounter type: initial encounter Qualified Code(s): S05.02XA - Injury of conjunctiva and corneal abrasion without foreign body, left eye, initial encounter Disposition: TO HOME OR SELFCARE Is pt being admited?: No Does the pt Need Aspirin: No Condition: Good Instructions: Corneal Abrasion (ED), Conjunctivitis (ED) Prescriptions: Cetirizine HCl [Zyrtec] 10 mg PO DAILY #30 tablet Ibuprofen 800 mg PO TID PRN #30 tablet PRN Reason: Pain , Severe (7-10) Polymyxin B Sulf/Trimethoprim [Polytrim Eye Drops] 10 ml OP Q4HR #10 ml Referrals: PRIMARY CAREMD [Primary Care Provider] - 3-5 Days SERA SHETH MD [Staff Physician] - 3-5 Days Forms: Work/School Release Form(ED) Time of Disposition: 20:13
== END 2017-07-13 20:15 | disposition home or self-care (01) ==
LOC: ED 15:23
DX: S05.02XA Injury of conjunctiva and corneal abrasion without foreign body, left eye, initial encounter (principal); H10.9 Unspecified conjunctivitis; X58.XXXA Exposure to other specified factors, initial encounter; Y93.89 Activity, other specified; Y92.89 Other specified places as the place of occurrence of the external cause; Y99.8 Other external cause status
CPT/HCPCS: 99282

== ENCOUNTER 2017-10-20 09:10 | Emergency (ER) | payer BC ==
[2017-10-20] MEDS ORDERED: ZOFRAN ODT PO ONE (10:25)
[2017-10-20] MEDS ORDERED: LIDOCAINE VISCOUS 2% PO ONE (10:25)
[2017-10-20] MEDS ORDERED: ALUM-MAG HYDROX-SIMETH 200-200-20MG/5ML PO ONE (10:25)
[2017-10-20] MEDS ORDERED: ULTRAM PO ONE (10:25)
--- NOTE | 2017-10-20 10:28 | Emergency Department Report ---
Blank Doc - Documentation Documentation: 27 year female with no past medical or surgical history presents to the hospital complaining of upper abdominal pain that started 30 minutes prior to arrival. Described as intermittent pressure, worse with palpation, no relieving factors. Positive Associated nausea without vomiting, diarrhea, medical, hematemesis, melena, or fever. Currently on menstral cycle exam: epigastric tenderness, left sideded upper reproducible chest wall pain ua, upt pending cbc,cmp,lipase, hcg added zofran, maalox, lidocaine, tramadol, ordered midlevel to follow
[2017-10-20 10:39] LABS: Mucus,Urine FEW /HPF
[2017-10-20 10:40] LABS: Bilirubin,Urine Negative (Negative); Blood,Urine Moderate (Negative); Color,Urine Yellow (Yellow); HCG Qualitative,Urine Negative (Negative); Protein,Urine <15 mg/dL mg/dL (Negative); Urobilinogen,Urine < 2.0 mg/dL (<2.0)
[2017-10-20 11:07] LABS: Basophils % (Auto) 0.1 % (0.0-1.8); Eosinophils % (Auto) 0.2 % (0.0-4.3); Hematocrit 38.1 % (30.3-42.9); Lymphocytes % (Auto) 8.7 % (13.4-35.0); Mean Corpuscular HGB Conc 34 % (30-34); Mean Corpuscular Hemoglobin 31 pg (28-32); Mean Corpuscular Volume 90 fl (79-97); Monocytes # (Auto) 0.6 K/mm3 (0.0-0.8); Monocytes % (Auto) 5.1 % (0.0-7.3); Platelet Count 333 K/mm3 (140-440); Red Blood Count 4.23 M/mm3 (3.65-5.03); Red Cell Distribution Width 14.6 % (13.2-15.2)
[2017-10-20 11:22] LABS: Alanine Aminotransferase 33 units/L (7-56); Albumin 4.6 g/dL (3.9-5); BUN/Creatinine Ratio 22; Blood Urea Nitrogen 11 mg/dL (7-17); Calcium 9.2 mg/dL (8.4-10.2); Hemolysis Index 5
[2017-10-20 11:40] LABS: Lipase 26 units/L (13-60)
--- NOTE | 2017-10-20 11:50 | Emergency Department Report ---
ED Abdominal Pain HPI - General Chief Complaint: Abdominal Pain Stated Complaint: WEAKNESS Time Seen by Provider: 10/20/17 10:19 Source: patient Mode of arrival: Wheelchair Limitations: No Limitations - History of Present Illness Initial Comments: This is a 27-year-old female who presents with abdominal pain that started this morning. Patient states she at breakfast at work around 0700 and shortly after started feeling sharp abdominal pain in epigastrium. Patient denies past medical or surgical history. Patient states after eating breakfast she stood up and felt sharp pain in epigastrium with burning in chest. Patient reports pain lasts for 30 minutes and resolves. Pain is sharp and tingling out of 10 on pain scale. She is also complaining of dizziness with standing which is now resolved. She told her global account manager and decided to come directly here. Patient states she feels nauseous without vomiting. Patient denies diarrhea, vomiting, recent travel, melena, and fever. MD Complaint: abdominal pain -: This morning Location: epigastric Radiation: chest (burning sensation) Migration to: no migration Severity: severe Severity scale (0 -10): 8 Quality: sharp Consistency: intermittent Improves With: nothing Worsens With: eating Associated Symptoms: nausea, chills. denies: vomiting, diarrhea, fever, constipation, dysuria, hematemesis, hematochezia, melena, hematuria, anorexia, syncope - Related Data LMP Date: 10/14/17 LMP (females 10-50): this week Previous Rx's Medication Instructions Recorded Last Taken Type cefUROXime [Ceftin] 500 mg PO Q12H 7 Days tablet 05/31/17 Unknown Rx Cetirizine HCl [Zyrtec] 10 mg PO DAILY #30 tablet 07/13/17 Unknown Rx Ibuprofen 800 mg PO TID PRN #30 tablet 07/13/17 Unknown Rx Polymyxin B Sulf/Trimethoprim 10 ml OP Q4HR #10 ml 07/13/17 Unknown Rx [Polytrim Eye Drops] Ciprofloxacin HCl [Cipro] 500 mg PO BID #10 tablet 10/20/17 Unknown Rx Metoclopramide HCl [Reglan TAB] 5 mg PO TIDAC PRN #9 tablet 10/20/17 Unknown Rx Allergies Allergy/AdvReac Type Severity Reaction Status Date / Time No Known Allergies Allergy Unverified 05/27/17 07:14 ED Review of Systems ROS: Stated complaint: WEAKNESS Other details as noted in HPI Constitutional: denies: chills, fever Respiratory: denies: cough, shortness of breath, wheezing Cardiovascular: denies: chest pain, palpitations Gastrointestinal: abdominal pain (epigastric pain), nausea. denies: vomiting, diarrhea Genitourinary: denies: urgency, dysuria, frequency, discharge Musculoskeletal: denies: back pain, joint swelling, arthralgia Neurological: denies: headache, weakness, paresthesias Psychiatric: denies: anxiety, depression ED Past Medical Hx - Past Medical History Previous Medical History?: No - Surgical History Past Surgical History?: No - Social History Smoking Status: Never Smoker Substance Use Type: None - Medications Home Medications: Home Medications Medication Instructions Recorded Confirmed Last Taken Type cefUROXime [Ceftin] 500 mg PO Q12H 7 Days tablet 05/31/17 Unknown Rx Cetirizine HCl [Zyrtec] 10 mg PO DAILY #30 tablet 07/13/17 Unknown Rx Ibuprofen 800 mg PO TID PRN #30 tablet 07/13/17 Unknown Rx Polymyxin B Sulf/Trimethoprim 10 ml OP Q4HR #10 ml 07/13/17 Unknown Rx [Polytrim Eye Drops] Ciprofloxacin HCl [Cipro] 500 mg PO BID #10 tablet 10/20/17 Unknown Rx Metoclopramide HCl [Reglan TAB] 5 mg PO TIDAC PRN #9 tablet 10/20/17 Unknown Rx ED Physical Exam - General Limitations: No Limitations General appearance: alert, in no apparent distress - Respiratory Respiratory exam: Present: normal lung sounds bilaterally. Absent: respiratory distress - Cardiovascular Cardiovascular Exam: Present: regular rate, normal rhythm. Absent: systolic murmur, diastolic murmur, rubs, gallop - GI/Abdominal GI/Abdominal exam: Present: soft, tenderness (left lower quadrant), normal bowel sounds. Absent: distended, guarding, rebound, rigid, organomegaly, mass - Back Exam Back exam: Present: normal inspection. Absent: CVA tenderness (R), CVA tenderness (L), muscle spasm, paraspinal tenderness, vertebral tenderness, rash noted - Neurological Exam Neurological exam: Present: alert, oriented X3 - Psychiatric Psychiatric exam: Present: normal affect, normal mood - Skin Skin exam: Present: warm, dry, intact, normal color. Absent: rash ED Course Vital Signs 10/20/17 10/20/17 09:13 10:27 Temperature 98.2 F Pulse Rate 70 Respiratory 18 18 Rate Blood Pressure 108/63 O2 Sat by Pulse 99 99 Oximetry ED Medical Decision Making - Lab Data Result diagrams: 10/20/17 10:49 10/20/17 10:49 Lab Results 10/20/17 10/20/17 10/20/17 Range/Units 10:14 10:49 10:49 WBC 12.0 H (4.5-11.0) K/mm3 RBC 4.23 (3.65-5.03) M/mm3 Hgb 13.0 (10.1-14.3) gm/dl Hct 38.1 (30.3-42.9) % MCV 90 (79-97) fl MCH 31 (28-32) pg MCHC 34 (30-34) % RDW 14.6 (13.2-15.2) % Plt Count 333 (140-440) K/mm3 Lymph % (Auto) 8.7 L (13.4-35.0) % [place] % (Auto) 5.1 (0.0-7.3) % Eos % (Auto) 0.2 (0.0-4.3) % Baso % (Auto) 0.1 (0.0-1.8) % Lymph # 1.0 L (1.2-5.4) K/mm3 [place] # 0.6 (0.0-0.8) K/mm3 Eos # 0.0 (0.0-0.4) K/mm3 Baso # 0.0 (0.0-0.1) K/mm3 Seg Neutrophils % 85.9 H (40.0-70.0) % Seg Neutrophils # 10.3 H (1.8-7.7) K/mm3 Sodium 139 (137-145) mmol/L Potassium 3.8 (3.6-5.0) mmol/L Chloride 102.2 (98-107) mmol/L Carbon Dioxide 24 (22-30) mmol/L Anion Gap 17 mmol/L BUN 11 (7-17) mg/dL Creatinine 0.5 L (0.7-1.2) mg/dL Estimated GFR > 60 ml/min BUN/Creatinine Ratio 22 % Glucose 84 (65-100) mg/dL Calcium 9.2 (8.4-10.2) mg/dL Total Bilirubin 0.50 (0.1-1.2) mg/dL AST 64 H (5-40) units/L ALT 33 (7-56) units/L Alkaline Phosphatase 104 (35-129) units/L Total Protein 7.8 (6.3-8.2) g/dL Albumin 4.6 (3.9-5) g/dL Albumin/Globulin Ratio 1.4 % Lipase 26 (13-60) units/L Urine Color Yellow (Yellow) Urine Turbidity Clear (Clear) Urine pH 6.0 (5.0-7.0) Ur Specific [place] 1.020 (1.003-1.030) Urine Protein <15 mg/dl (Negative) mg/dL Urine Glucose (UA) Negative (Negative) mg/dL Urine Ketones Negative (Negative) mg/dL Urine Blood Moderate A (Negative) Urine Nitrite Negative (Negative) Ur Reducing Substances Not Reportable Urine Bilirubin Negative (Negative) Urine Ictotest Not Reportable Urine Urobilinogen < 2.0 (<2.0) mg/dL Ur Leukocyte Esterase Negative (Negative) Urine WBC (Auto) 3.0 (0.0-6.0) /HPF Urine RBC (Auto) 8.0 (0.0-6.0) /HPF U Epithel Cells (Auto) 3.0 (0-13.0) /HPF Urine Mucus Few /HPF Urine HCG, Qual Negative (Negative) - Radiology Data Radiology results: report reviewed, image reviewed CT ABDOMEN PELVIS WITHOUT CONTRAST: HISTORY: Left upper quadrant tenderness. COMPARISON: none. TECHNIQUE: Helical CT in 1.25mm intervals without IV contrast. Sagittal and coronal reconstructions. FINDINGS: Lung bases: Normal. Liver: Normal. Biliary system: Innumerable millimetric calcified gallstones are identified within the gallbladder. No evidence for biliary dilatation or inflammation. Pancreas: Normal. Spleen: Normal. Kidneys/ureters/bladder: Normal. Adrenal glands: Normal. Aorta: Normal. Intestines: Normal. Appendix: Normal. Pelvic viscera: Normal. Ascites: None. Adenopathy: None. Musculoskeletal: Normal. IMPRESSION: No acute abdominal process is identified. Cholelithiasis. Critical care attestation.: If time is entered above; I have spent that time in minutes in the direct care of this critically ill patient, excluding procedure time. ED Disposition Clinical Impression: Gastroenteritis, Nausea alone, Elevated liver enzymes Cholelithiasis Qualifiers: Cholelithiasis location: gallbladder Cholecystitis presence: without cholecystitis Biliary obstruction: without biliary obstruction Qualified Code(s) : K80.20 - Calculus of gallbladder without cholecystitis without obstruction Disposition: DC-01 TO HOME OR SELFCARE Is pt being admited?: No Does the pt Need Aspirin: No Condition: Stable Instructions: Biliary Colic (ED), Gastroenteritis (ED), Low Sodium Diet (ED) Additional Instructions: Frequent hand washing is important to reduce spread. Prompt disinfection of contaminated surfaces with household chlorine bleach- based customer development manager and washing of soiled clothing and bedding should be advised. If food or water is thought to be contaminated, it should be avoided. Increase fluid intake. Drinks high in sugars such as carbonated soft drinks, fruit juice, and highly sugared liquids should be avoided. Follow-up primary care doctor in 2-3 days for evaluation of liver function. Prescriptions: Ciprofloxacin HCl [Cipro] 500 mg PO BID #10 tablet Metoclopramide HCl [Reglan TAB] 5 mg PO TIDAC PRN #9 tablet PRN Reason: Nausea And Vomiting Referrals: HUI TALLEY MD [Staff Physician] - 3-5 Days [facility] [Provider Group] - 3-[address] [facility] [Provider Group] - 3-5 Days Forms: Work/School Release Form(ED) Time of Disposition: 13:57 Print Language: VIETNAMESE
--- NOTE | 2017-10-20 13:24 | Cat Scan Report ---
CT ABDOMEN PELVIS WITHOUT CONTRAST: HISTORY: Left upper quadrant tenderness. COMPARISON: none. TECHNIQUE: Helical CT in 1.25mm intervals without IV contrast. Sagittal and coronal reconstructions. FINDINGS: Lung bases: Normal. Liver: Normal. Biliary system: Innumerable millimetric calcified gallstones are identified within the gallbladder. No evidence for biliary dilatation or inflammation. Pancreas: Normal. Spleen: Normal. Kidneys/ureters/bladder: Normal. Adrenal glands: Normal. Aorta: Normal. Intestines: Normal. Appendix: Normal. Pelvic viscera: Normal. Ascites: None. Adenopathy: None. Musculoskeletal: Normal. IMPRESSION: No acute abdominal process is identified. Cholelithiasis.
[2017-10-20 14:33] VITALS: BP 106/62
== END 2017-10-20 14:32 | disposition home or self-care (01) ==
LOC: ED 09:10
DX: K80.20 Calculus of gallbladder without cholecystitis without obstruction (principal); K52.9 Noninfective gastroenteritis and colitis, unspecified; R94.5 Abnormal results of liver function studies
CPT/HCPCS: 36415; 74176; 80053; 81001; 81025; 83690; 85025; Q0162